=== PATIENT | male | born 1975 | race Caucasian/White ===

== ENCOUNTER 2018-07-14 18:18 | Inpatient (IN) ==
[2018-07-14] MEDS ORDERED: MAGNESIUM SULFATE IV ONE (19:00)
[2018-07-14] MEDS ORDERED: EPINEPHRINE SYRINGE IV ONE (19:00)
[2018-07-14] MEDS: NS 1,000 ML IV SCH ×2 (19:04→21:04)
[2018-07-14] MEDS: ZOFRAN IV ONE ×2 (19:08→21:06)
[2018-07-14] MEDS: ATIVAN IV ONE ×2 (19:10→21:08)
[2018-07-14 20:02] LABS: INR 1.12; PROTIME 15.3 Seconds (11.0-16.0)
[2018-07-14 20:03] LABS: PTT 35.1 Seconds (22.3-41.8)
[2018-07-14 20:06] LABS: BASO# 0.01 X1000 (0.0-0.2); BASO% 0.1 % (0.0-0.8); HEMATOCRIT 34.3 % (42.0-52.0); HEMOGLOBIN 11.7 g/dL (14.0-18.0); IMM GRAN# 0.06 X1000 (0.0-0.04); IMM GRAN% 0.6 % (0.0-0.5); LYMPH# 0.39 X1000 (1.2-3.4); MCH 32.1 PG (27-31); MCHC 34.1 g/dL (33-37); MCV 94.2 FL (81-99); MONO# 0.92 X1000 (0.11-0.59); MONO% 9.4 % (1.7-9.3); MPV 11.7 FL (7.4-10.4); NEUT# 8.45 X1000 (1.4-6.5); NEUT% 85.9 % (42.2-75.2); RBC 3.64 XMIL (4.7-6.1); RDW 15.1 % (11.5-14.5); WBC 9.83 X1000 (4.8-10.8)
[2018-07-14 20:09] LABS: PLT 31 X1000 (130-400)
[2018-07-14 20:26] LABS: ESTIMATED GFR > 60
[2018-07-14 20:27] LABS: AGAP 28; ALB/GLOB RATIO 1.2; ALBUMIN 4.1 g/dL (3.5-5.0); ALKALINE PHOSPHATASE 324 U/L (32-122); BUN 16 mg/dL (8-22); CALCIUM 8.2 mg/dL (8.8-10.2); CHLORIDE 82 mmol/L (98-107); COSMO 274; CREATININE 0.8 mg/dL (0.7-1.2); GLUCOSE 182 mg/dL (70-104); GOT 261 U/L (10-34); GPT 57 U/L (10-44); POTASSIUM 2.8 mmol/L (3.5-5.1); SODIUM 134 mmol/L (136-145); TCO2 24 mmol/L (25-35); TOTAL BILIRUBIN 5.05 mg/dL (0.20-1.00); TOTAL PROTEIN 7.6 g/dL (6.3-8.3)
--- NOTE | 2018-07-14 20:52 | Diag Imaging Result Doc PS360 ---
EXAM: CHEST-PORTABLE - 07/14/2018 HISTORY: encephalopathy TECHNIQUE: Portable chest COMPARISON: 02/22/2014 FINDINGS: Heart size appears normal. The lungs appear clear. There is no pleural effusion or pneumothorax identified. IMPRESSION: No evidence of acute disease. Electronically signed by West Campos 07/14/2018 8:50 PM
[2018-07-14] MEDS ORDERED: ZOFRAN ONE (20:58)
[2018-07-14] MEDS ORDERED: VERSED ONE (21:19)
[2018-07-14] MEDS ORDERED: NORCURON ONE (21:19)
[2018-07-14] MEDS ORDERED: AMIDATE ONE (21:20)
[2018-07-14] MEDS ORDERED: QUELICIN ONE (21:20)
--- NOTE | 2018-07-14 21:58 | Diag Imaging Result Doc PS360 ---
EXAM: CHEST-PORTABLE - 07/14/2018 HISTORY: Tube Placement TECHNIQUE: Portable chest COMPARISON: Portable exam from earlier the same evening (07/14/2018) FINDINGS: There has been interval insertion of an endotracheal tube, with its tip approximately 5 cm above the sasha. There has been development of mild perihilar atelectasis. There is no pleural effusion or pneumothorax identified. IMPRESSION: Tip of endotracheal tube approximately 5 cm above the sasha. Development of mild perihilar atelectasis. Electronically signed by West Campos 07/14/2018 9:56 PM
[2018-07-14] MEDS ORDERED: DIPRIVAN 1% 1,000 MG/100 ML BOTTLE IV SCH (22:00)
[2018-07-14] MEDS: POTASSIUM CHLORIDE 20 MEQ/SWI 20 MEQ/100 ML IVPB IV SCH ×2 (22:00→23:42)
[2018-07-14 22:31] LABS: ALLEN TEST YES; BE -6.1 mmoll (-3.0-3.0); BLOOD TYPE ARTERIAL; METHB 1.4 % (0.0-1.5); PCO2(98.6) 35 mmHg (35-45); PO2(98.6) 71 mmHg (60-100); SAMPLE BLOOD; SAO2 94.4 % (95.0-100.0); THB 12.5 g/dL (11.5-17.4); pH(98.6) 7.34 (7.35-7.45)
[2018-07-14 22:34] LABS: MODALITY AMBU BAG
[2018-07-14 22:41] LABS: URINE SOURCE CLEAN CATCH
[2018-07-14 22:51] LABS: BILIRUBIN URINE NEGATIVE (NEGATIVE); BLOOD URINE LARGE (NEGATIVE); COLOR YELLOW; GLUCOSE URINE TRACE mg/dL (NEGATIVE); KETONE URINE 40 mg/dL (NEGATIVE); LEUKOCYTES URINE TRACE (NEGATIVE); NITRITE URINE NEGATIVE (NEGATIVE); PROTEIN URINE 200 mg/dL (NEGATIVE); SP GRAVITY URINE 1.011; TURBIDITY URINE HAZY (CLEAR); UROBILINOGEN URINE 2 mg/dL (NORMAL)
[2018-07-14 22:56] LABS: UR EPITHELIAL CELLS <10 /HPF (<10); URINE BACTERIA NEGATIVE /HPF; URINE RBC TNTC /HPF (<10); URINE WBC <10 /HPF (<10)
[2018-07-14 23:07] LABS: URINE CASTS GRANULAR PRESENT; URINE CRYSTALS NONE SEEN; URINE SMALL ROUND CELLS NONE SEEN; URINE YEAST NONE SEEN
[2018-07-14] MEDS ORDERED: M.V.I.-12 10 ML, FOLIC ACID 1 MG, MAGNESIUM SULFATE 1 GM, THIAMINE 100 MG in NS 1,000 ML IV ONE (23:11)
[2018-07-14] MEDS ORDERED: ZOFRAN IV PRN (23:11)
[2018-07-14] MEDS ORDERED: ATIVAN IV ONE (23:26)
[2018-07-15] MEDS ORDERED: LEVOPHED 8 MG in D5 1/2 NS 250 ML IV SCH (00:45)
[2018-07-15 00:59] LABS: ALLEN TEST YES; BE 6.6 mmoll (-3.0-3.0); BLOOD TYPE ARTERIAL; METHB 1.1 % (0.0-1.5); O2(CT) 15.4 mL/dL (15.0-23.0); O2HB 95.7 % (95.0-99.0); PCO2(98.6) 40 mmHg (35-45); PO2(98.6) 84 mmHg (60-100); SAMPLE BLOOD; SAO2 98.8 % (95.0-100.0); SRATE 14 BPM; THB 11.4 g/dL (11.5-17.4); TVOL 500 mL; pH(98.6) 7.49 (7.35-7.45)
[2018-07-15 01:02] LABS: MODALITY VENTILATOR
[2018-07-15 01:24] LABS: HEMATOCRIT 31.9 % (42.0-52.0); HEMOGLOBIN 10.9 g/dL (14.0-18.0); MCHC 34.2 g/dL (33-37); MCV 96.7 FL (81-99); MPV 11.3 FL (7.4-10.4); RBC 3.3 XMIL (4.7-6.1); RDW 15.5 % (11.5-14.5); WBC 12.95 X1000 (4.8-10.8)
[2018-07-15] MEDS ORDERED: PROTONIX 80 MG in NS 80 ML IV ONE (01:31)
[2018-07-15] MEDS: DIPRIVAN 1% 1,000 MG/100 ML BOTTLE IV SCH ×7 (01:35→22:40)
[2018-07-15] MEDS: PROTONIX 80 MG in NS 80 ML IV SCH ×3 (02:30→21:22)
[2018-07-15] MEDS: NS 1,000 ML IV SCH ×2 (03:50)
--- NOTE | 2018-07-15 05:00 | HISTORY AND PHYSICAL ---
PRIMARY CARE PHYSICIAN: Dr. Bernard Devi. CHIEF COMPLAINT: Confusion, tremulous, nausea, vomiting, hematemesis x1 day. HISTORY OF PRESENTING ILLNESS: A 43-year-old male with a history of chronic alcoholism and anxiety was brought to the emergency department after patient was found on the floor confused, defecated and having bloody vomitus. He was evaluated in the emergency department. He was tremulous and confused. During his evaluation, he started desatting and becoming unresponsive. Subsequently, ACLS protocol was started and he was emergently intubated. The patient will require admission to ICU for further management. Most of the history and remainder of the history is obtained from his family member. PAST MEDICAL HISTORY: Includes anxiety disorder. PAST SURGICAL HISTORY: Cholecystectomy, appendectomy, left elbow surgery. ALLERGIES: No known drug allergies. CURRENT MEDICATIONS: As listed in the medication reconciliation sheet. SOCIAL HISTORY: Twenty pack years history of smoking, history of alcohol use daily, mostly vodka. No illicit drug use. FAMILY HISTORY: No history of coronary artery disease. REVIEW OF SYSTEMS: Limited due to patient being intubated. PHYSICAL EXAMINATION: GENERAL: The patient is currently intubated. VITAL SIGNS: Pulse 113, blood pressure 148/96. HEENT: Atraumatic, normocephalic. There is poor dentition. NECK: No masses. CHEST: Rhonchi. CARDIOVASCULAR: Regular rate and rhythm. ABDOMEN: Soft, positive bowel sounds. EXTREMITIES: No edema. NEUROLOGIC: He is sedated. GENITOURINARY: No bladder distention. SKIN: Warm. LABORATORIES AND STUDIES: WBCs 9.83, hemoglobin 11.7, hematocrit 34.3, platelets 31,000. Sodium 134, potassium 2.8, chloride 82, CO2 is 24, BUN is 16, creatinine 0.8, glucose is 182, AST is 261, ALT 57, alkaline phosphatase 324. ASSESSMENT: A 43-year-old male with a history of chronic alcoholism and anxiety disorder was brought to the emergency department due to patient being found on the floor in bloody vomitus and mental status changes. He was brought to the emergency department. He was tremulous. It was suspected he was in DTs. During his examination, he started desatting and was becoming somewhat obtunded. He was emergently intubated and he will require ICU admission for further management. 1. Acute respiratory failure. 2. Delirium tremens. 3. Hematemesis. 4. Chronic alcoholism. 5. Abnormal LFTs. 6. Hypokalemia. 7. Thrombocytopenia. PLAN: 1. The patient will be admitted to ICU. 2. We will continue with ventilator support. 3. We will start patient on a banana bag and a propofol drip. 4. We will consult Pulmonary for ventilator management. 5. We will consult Gastroenterology for hematemesis and abnormal LFTs. 6. We will replace his electrolytes. 7. We will continue to monitor his platelets. 8. We will put patient on DVT prophylaxis with SCD. 9. The patient's condition is critical. 10. We will continue to follow and reassess and make further recommendation based on patient's clinical course. cc: Andrés Dejesus MD MTDD
--- NOTE | 2018-07-15 06:29 | Diag Imaging Result Doc PS360 ---
CHEST-PORTABLE - 07/15/2018 INDICATION: Ventilator Patient COMPARISON: 07/14/2018 FINDINGS: Stable endotracheal tube at T3-T4. There are worsening central infiltrates bilaterally particularly at the right hilum. Heart size and pulmonary vascularity are top normal. No pneumothorax or large pleural effusion. IMPRESSION: Worsening central infiltrates compatible with pneumonia or aspiration. Electronically signed by Afshin Manriquez 07/15/2018 6:27 AM
[2018-07-15 06:42] LABS: HEMATOCRIT 24.8 % (42.0-52.0); HEMOGLOBIN 7.9 g/dL (14.0-18.0); LYMPH% 3.7 % (20.5-51.1); MCH 31.6 PG (27-31); MCHC 31.9 g/dL (33-37); MCV 99.2 FL (81-99); MONO% 7.3 % (1.7-9.3); MPV 12.2 FL (7.4-10.4); NEUT% 88.7 % (42.2-75.2); RDW 15.6 % (11.5-14.5); WBC 10.94 X1000 (4.8-10.8)
[2018-07-15 06:43] LABS: IMM GRAN# 0.03 X1000 (0.0-0.04); IMM GRAN% 0.3 % (0.0-0.5); LYMPH# 0.41 X1000 (1.2-3.4); PLT 22 X1000 (130-400)
[2018-07-15 06:47] LABS: MONO 6 % (1-9); SEGS 94 % (42-75)
[2018-07-15 07:01] LABS: INR 1.65; PROTIME 20.8 Seconds (11.0-16.0)
[2018-07-15 07:21] LABS: AGAP 12; ALB/GLOB RATIO 1.1; ALBUMIN 2.4 g/dL (3.5-5.0); ALKALINE PHOSPHATASE 189 U/L (32-122); AMYLASE 27 U/L (20-200); BUN 14 mg/dL (8-22); CHLORIDE 109 mmol/L (98-107); COSMO 281; CREATININE 0.6 mg/dL (0.7-1.2); ESTIMATED GFR > 60; GLUCOSE 85 mg/dL (70-104); GOT 151 U/L (10-34); GPT 37 U/L (10-44); LIPASE 35 U/L (13-60); MAGNESIUM 1.1 mg/dL (1.5-2.7); PHOSPHORUS 2.1 mg/dL (2.7-4.5); SODIUM 141 mmol/L (136-145); TCO2 20 mmol/L (25-35); TOTAL BILIRUBIN 3.07 mg/dL (0.20-1.00); TOTAL PROTEIN 4.6 g/dL (6.3-8.3)
[2018-07-15 07:36] LABS: CALCIUM 5.1 mg/dL (8.8-10.2); POTASSIUM 2.5 mmol/L (3.5-5.1)
[2018-07-15] MEDS ORDERED: POTASSIUM CHLORIDE 40 MEQ/SWI 40 MEQ/100 ML IVPB IV ONE (07:40)
[2018-07-15] MEDS ORDERED: MAGNESIUM SULFATE 4 GM/S.W.I. 4 GM/100 ML IVPB IV ONE (07:40)
[2018-07-15] MEDS ORDERED: CALCIUM GLUCONATE IV PUSH ONE (07:41)
[2018-07-15] MEDS ORDERED: VANCOMYCIN IV PER PHARMACY MISC SCH (07:45)
[2018-07-15] MEDS ORDERED: ATIVAN IV PRN (08:21)
[2018-07-15] MEDS ORDERED: POTASSIUM PHOSPHATE 30 MMOL in NS 250 ML IV ONE (08:30)
[2018-07-15] MEDS ORDERED: NS 1,000 ML IV SCH (08:30)
[2018-07-15 08:38] LABS: ACETONE SERUM NEGATIVE (NEGATIVE)
[2018-07-15] MEDS: ZOSYN 3.375 GM in NS 50 ML IV SCH ×3 (08:45→19:52)
[2018-07-15 08:48] LABS: ACETAMINOPHEN < 1.2 ug/mL (10-30); IRON SATURATION 19 %; TIBC 199 ug/dL; TOTAL IRON 38 ug/dL (53-167); UNBOUND IRON 161 ug/dL (112-346)
[2018-07-15] MEDS ORDERED: VANCOMYCIN 2,000 MG in NS 500 ML IV ONE (09:00)
[2018-07-15 09:07] LABS: FERRITIN 1090 ng/mL (30-400)
[2018-07-15 09:20] LABS: CK INDEX 2.1 (0.0-2.5); CK-MB 5.63 ng/mL (0.0-5.0)
--- NOTE | 2018-07-15 09:34 | PROGRESS NOTE ---
DATE: 07/15/2018 SUBJECTIVE: This patient is on mechanical ventilation and sedated. No family members at the bedside. Apparently he was found on the floor confused and having hematemesis. It looks like he became unresponsive. He was intubated. Admitted to the ICU. He has been getting banana bag fluids, and he is not on pressors. At some point, the blood pressure was in the 80s, but now is in the 100s to 110s. He has multiple electrolytes abnormalities. Also, he is anemic, thrombocytopenic, and he has some coagulopathy as well. He has been ordered PRBCs, platelets and FFPs. Pending lactate level results from today. OBJECTIVE: Vital Signs: Temperature 97.4 degrees, pulse 108, respiratory rate 20, blood pressure 118/82, oxygen saturation 100% on mechanical ventilation. HEENT: Head: Normocephalic. No trauma. Poor dentition. He has some icteric sclera. Neck: Supple. No JVD. Central trachea. Chest: Coarse breath sounds bilaterally with some crepitus at the bases, and mid lung bilaterally as well. Abdomen: Distended, but is soft. Positive bowel sounds. Extremities: No edema. No clubbing. No cyanosis. Neurological examination: The patient is on mechanical ventilation and sedated. LABORATORY: WBC. 10.9, hemoglobin 7.9, hematocrit 24.8, platelet count is 22. PT 20.8 and INR 1.6. Sodium 141, potassium 2.5, chloride 109, bicarbonate 20. BUN 14, creatinine 0.6. Glucose 85, calcium 5.1, magnesium 1.1. Total bilirubin 3, AST 151, ALT 37, alkaline phosphatase 189, albumin 2.4. ASSESSMENT AND PLAN: 1. Septic shock. This patient meets criteria for septic shock due to hypotension, tachypnea, tachycardia, elevated lactate level and pneumonia. He is responding to fluid resuscitation. We have placed this patient on broad-spectrum antibiotics. He has been placed on mechanical ventilation because apparently he started having oxygen desaturation/hypoxemic respiratory failure. 2. Hypoxemic respiratory failure, continue with mechanical ventilation. Pulmonary Department will be evaluating this patient. We will follow their recommendations. 3. Bilateral pneumonia, probably multifocal and likely due to aspiration. He has been placed on broad-spectrum antibiotics. We will continue with the same management. Pulmonary Department has been requested for evaluation. 4. Likely delirium tremens. He has been placed on mechanical ventilation and propofol. I will use pentobarbital if he has some kind of seizure disorder. He has been placed on a banana bag and intravenous fluids. Apparently this patient is allergic to Ativan but I am not quite sure about it. He is only 43 years old and likely he will benefit from getting some help in a detoxification center. 5. Hematemesis. He is getting Protonix drip. He will get blood transfusions and fresh frozen plasma. Gastroenterology Department has been consulted. 6. Thrombocytopenia likely due to liver dysfunction. He has been thrombocytopenic before in 2016, 7. Alcoholic hepatitis with abnormal liver function tests, aware. Gastroenterology on board. 8. Chronic alcoholism, aware. I will advise this patient to stop drinking completely, and I will do daily cessation education. 9. Anemia. Hemoglobin dropped to 7.9. He will receive packed red blood cells. This is likely due to blood-loss anemia. 10. Coagulopathy. PT/INR is slightly elevated, but he will receive fresh frozen plasma to see if that can help with the bleeding. Gastroenterology Department has been consulted. We will monitor. 11. Hypokalemia. We will replace the potassium. 12. Hypocalcemia. We will replace the calcium. 13. Low magnesium and phosphorus. Will replace. This patient is remarkably sick. He is only 43 years old and he has a history of alcohol abuse. I do not have any family members at the bedside. We will continue treating this patient in the ICU. We will continue with fluids, blood products, multivitamins, Protonix drip, antibiotics for his pneumonia and ventilatory support. Gastroenterology Department and Pulmonary Department will evaluate this patient. cc: David Tesfaye MD
[2018-07-15 10:23] LABS: ALLEN TEST YES; BE 4.9 mmoll (-3.0-3.0); BLOOD TYPE ARTERIAL; HCO3-(ACT) 28.8 mmoll (20.0-26.0); METHB 1.1 % (0.0-1.5); O2(CT) 13.6 mL/dL (15.0-23.0); O2HB 96.7 % (95.0-99.0); PCO2(98.6) 33 mmHg (35-45); PO2(98.6) 88 mmHg (60-100); SAMPLE BLOOD; SAO2 99.2 % (95.0-100.0); SRATE 14 BPM; THB 9.9 g/dL (11.5-17.4); TVOL 500 mL; pH(98.6) 7.53 (7.35-7.45)
[2018-07-15 10:24] LABS: MODALITY VENTILATOR
[2018-07-15] MEDS: CLINIMIX E 4.25%-5% SOLUTION 1,000 ML IV SCH ×2 (11:15→19:53)
[2018-07-15] MEDS: PHENOBARBITAL IV PRN (11:43)
--- NOTE | 2018-07-15 11:49 | PULMONOLOGY CONSULTATION ---
DATE: 07/15/2018 REASON FOR CONSULTATION: Respiratory failure. HISTORY OF PRESENT ILLNESS: Mr. Oleg Masters is a 43-year-old white male with history of alcoholism with ongoing alcohol abuse who lost his job 07/04/2018, according to his . He began drinking more at that time. The patient's went out of town, and then when she was on her way home, he would not answer her texts. She reported he had been having difficulty with nausea and vomiting and inability to take p.o. When she arrived at the house, there was blood in the house. He also started having dark tarry stools. The patient was brought to the emergency room. In the emergency room, he had an episode of torsades which corrected with defibrillation. He has had worsening chest x-ray changes and was intubated in the emergency room. PAST MEDICAL HISTORY/PROBLEM LIST: 1. Alcohol abuse as per above. 2. History of alcoholic hepatitis. 3. Hypertension. 4. Anxiety disorder. 5. Status post elbow surgery. 6. Status post appendectomy. 7. Status post cholecystectomy. SOCIAL HISTORY: Ongoing tobacco and alcohol use. Previous drug screen was positive for amphetamines. FAMILY HISTORY: Noncontributory to current presentation. REVIEW OF SYSTEMS: Constitutional: Reveals a disheveled white matter who appears older than his stated age. HEENT: He has some dried blood in his oropharynx. He has brown bloody secretions in his endotracheal tube. OBJECTIVE: Vital signs: Maximum temperature in the last 24 hours 100.4 degrees, blood pressure 112/76 without vasopressors, heart rate 105, respiratory rate 18, oxygen saturation 99% on 50% FiO2. HEENT: Pupils are equal. The sclerae are mildly icteric. Oropharynx has dried blood. Chest: Reveals coarse rhonchi. Cardiac: Regular rate, normal S1, normal S2. Abdomen: Soft with mild distension and no bowel sounds. Extremities: Slightly cool to the touch. LABORATORIES: Chest x-ray reveals increasing bilateral infiltrates. Sodium 141, potassium 2.7, chloride 109, bicarbonate 20, BUN 14, creatinine 0.6, magnesium 1.1, glucose 2.1. Bilirubin 3.07. AST 151, ALT 37, alkaline phosphatase 189. Total protein 4.6, albumin 2.4. Arterial blood gas: pH 7.53, pCO2 of 33, pO2 of 88 on assist control. Respiratory rate 14, 50% FiO2. IMPRESSION: A 43-year-old with alcohol abuse, gastrointestinal bleeding with hematemesis and melena, aspiration pneumonia, alcoholic hepatitis, acute hypoxemic respiratory failure with aspiration pneumonia, protein calorie malnutrition, hypomagnesemia, hypophosphatemia, and severe thrombocytopenia. RECOMMENDATIONS: 1. Continue full ventilatory support with current sedation. Will adjust ventilatory rate. 2. Replace electrolytes as you were doing. 3. Collect sputum for C and S given aspiration pneumonia. 4. Add a calorie source given his protein calorie malnutrition with evidence of ketonuria. 5. Alcohol cessation and tobacco cessation will be discussed if he survives this hospitalization. cc: Oleg Solano MD
[2018-07-15 15:24] LABS: HEMOGLOBIN 10.3 g/dL (14.0-18.0)
[2018-07-15 15:55] LABS: CK INDEX 1.7 (0.0-2.5); CK-MB 4.11 ng/mL (0.0-5.0)
--- NOTE | 2018-07-15 16:06 | Diag Imaging Result Doc PS360 ---
EXAM: US ABDOMEN-COMPLETE 07/15/2018 HISTORY: Abd distention,Elevated LFTs TECHNIQUE: Abdominal ultrasound COMMENT: The liver is hyperechoic and nodular in contour. The pancreatic head is normal in appearance the remainder is obscured. There is no evidence of biliary dilatation the common bile duct measuring less than 6 mm. Detail in most of the liver is very poor. There are no definite masses demonstrated. The spleen is enlarged measuring almost 16.7 cm in greatest dimension. The kidneys are without evidence of hydronephrosis or mass. There is a small amount of free fluid in the right lower quadrant. There is a 12 mm subcutaneous cyst in the left lateral abdomen. There is antegrade flow in the portal vein. The visualized portions of the aorta and inferior vena cava are within normal limits. IMPRESSION: Cirrhosis and splenomegaly. Electronically signed by Ken Bowers 07/15/2018 4:04 PM
[2018-07-15] MEDS ORDERED: SANDOSTATIN IV ONE (18:11)
[2018-07-15 18:37] LABS: HEMOGLOBIN 10.8 g/dL (14.0-18.0)
[2018-07-15] MEDS: SANDOSTATIN 500 MICROGM in D5W 100 ML IV SCH (19:15)
[2018-07-15] MEDS: VANCOMYCIN 1,800 MG in NS 250 ML IV SCH (21:22)
[2018-07-15 22:19] LABS: HEMATOCRIT 33.7 % (42.0-52.0); HEMOGLOBIN 10.9 g/dL (14.0-18.0)
[2018-07-15 22:59] LABS: CK-MB 2.14 ng/mL (0.0-5.0)
--- NOTE | 2018-07-15 23:01 | CONSULTATION ---
DATE OF CONSULTATION: 07/15/2018 REFERRING PHYSICIAN: David Bland M.D. PRIMARY CARE PROVIDER: Bernard Devi D.O. INDICATION FOR CONSULTATION: 1. Hematemesis. 2. Known alcoholism. 3. Reflux esophagitis on recent EGD. HISTORY OF PRESENT ILLNESS: The patient is a 43-year-old white male with a history of chronic alcoholism, anxiety. He was brought to the emergency room after being found down on the floor in his apartment confused, covered with stool and having bloody emesis. In the emergency room, he became tremulous and confused. He subsequently developed severe hypoxemia and respiratory failure requiring emergent intubation. In the ICU, he has continued to have hematemesis. We are asked to participate in his care. Of note, on his chart is a recent EGD performed by Dr. Devi, which reveals severe esophagitis, erosive gastritis and duodenitis. There is no mention of the presence of esophageal varices. PAST MEDICAL HISTORY: 1. ETOH abuse. 2. Anxiety. 3. Esophagitis. 4. Gastric duodenitis as noted above. PAST SURGICAL HISTORY: 1. Cholecystectomy. 2. Appendectomy. 3. Left elbow surgery. MEDICATION ALLERGIES: None. HOME MEDICATIONS: According to [facility] [employer] include. 1. Lexapro. 2. Losartan. REVIEW OF SYSTEMS: Unobtainable as the patient is intubated and sedated. SOCIAL HISTORY: According to the computer is remarkable for a 20 pack-year smoking history, daily alcohol ingestion of vodka. There is no illicit drug use according to the computer. PHYSICAL EXAM: On exam, the patient is intubated and sedated. His blood pressure is 106/67, pulse 97, respiration 19, temperature is 100.6 degrees with a T-max of 101.1 degrees.HEENT: Remarkable for oral intubation, with copious dried bloody secretions around the nasal and oropharynx. Pulmonary: Breath sounds are coarse. Cardiovascular: Reveals a resting tachycardia with a regular rhythm. Abdomen: Is soft but distended. There are high- pitched tinkling bowel sounds but no rebound or guarding. Extremities: Bilaterally are negative for cyanosis, clubbing, or edema. OBJECTIVE DATA: Reveals a hemoglobin of 7.9 with hematocrit of 24.8 and a white count of 10.94 at 0615 this morning. He had 222,000 platelets. His PT was 20.8 with an INR of 1.65. On blood gas his pH is 7.53, pCO2 33, PO2 88 with a lactate of 1.30. He is on 50% FiO2. Please note upon admission his lactate was 13.10 on 100% FiO2. Serum chemistries are remarkable for sodium of 141, potassium 2.5, chloride 109, CO2 of 20, BUN 14, creatinine 0.6 with a glucose of 85. Calcium is 5.1, phosphorus 2.1, magnesium 1.1, total bilirubin 3.07, AST 151, ALT 37, alkaline phosphatase 189, total protein 4.6 and albumin of 2.4. His iron is 38 with ferritin of 1090. His plasma lactate is 1.3, B12 528, folic acid greater than 40. His creatine kinase is 273 with 5.63 on the CK-MB. IMPRESSION: 1. Hematemesis. 2. Alcohol abuse. 3. Abnormal liver function tests. 4. Thrombocytopenia. 5. Cirrhosis secondary to ETOH. RECOMMENDATION: 1. I agree with the Protonix drip as you are doing. 2. I would begin octreotide drip as it is unclear whether not the patient has portal hypertension. This may help reduce his splanchnic pressure and reduce bleeding from an upper GI source. 3. I agree with Clinimix for nutrition support as it is unlikely that the patient will be able to advance his diet in the next 24 to 48 hours. I do recommend a KUB in the morning to assess for an ileus versus obstruction given his abdominal distention. Once the distension improves, I would begin enteral feedings. 4. I personally reviewed his abdominal ultrasound which is only remarkable for cirrhosis and splenomegaly. There were no definitive masses in the liver but the details are very poor because of gaseous distention. I would continue to monitor. 5. The patient had GERD with severe esophagitis on his recent EGD. I will begin Carafate suspension. Please place a nasogastric tube for medication administration. 6. With regard to an EGD for his hematemesis, I recommend correcting his thrombocytopenia and stabilizing him clinically before endoscopy is considered. 7. We will continue to monitor the patient with you. 8. His MELD score is 16. Under different circumstances, I would refer him for liver transplant. Unfortunately, he is an active drinker and therefore I will continue management at this time. 9. His discriminant function is 44. I will begin Trental 400 mg 3 times a day for alcoholic hepatitis. I am reluctant to use prednisolone as we have no assurance that we will be able to follow up with this patient on a regular basis. 10. Additional recommendations to follow based on his clinical course. cc: David Tesfaye MD MTDD
[2018-07-16] MEDS: CARAFATE LIQUID PO SCH ×5 (00:32→21:01)
[2018-07-16] MEDS: ZOSYN 3.375 GM in NS 50 ML IV SCH ×4 (00:48→19:33)
[2018-07-16 01:24] LABS: HEMATOCRIT 33.1 % (42.0-52.0); HEMOGLOBIN 10.8 g/dL (14.0-18.0)
[2018-07-16] MEDS: DIPRIVAN 1% 1,000 MG/100 ML BOTTLE IV SCH ×3 (01:36→09:35)
[2018-07-16] MEDS: CLINIMIX E 4.25%-5% SOLUTION 1,000 ML IV SCH ×3 (02:53→19:38)
[2018-07-16] MEDS: SANDOSTATIN 500 MICROGM in D5W 100 ML IV SCH ×2 (04:25→14:00)
[2018-07-16 04:46] LABS: ALLEN TEST YES; BE 3.9 mmoll (-3.0-3.0); BLOOD TYPE ARTERIAL; HCO3-(ACT) 27.9 mmoll (20.0-26.0); O2(CT) 18.2 mL/dL (15.0-23.0); O2HB 94.6 % (95.0-99.0); PCO2(98.6) 38 mmHg (35-45); PO2(98.6) 99 mmHg (60-100); SAMPLE BLOOD; SAO2 95.3 % (95.0-100.0); SRATE 14 BPM; THB 13.6 g/dL (11.5-17.4); TVOL 500 mL; pH(98.6) 7.47 (7.35-7.45)
[2018-07-16 04:48] LABS: MODALITY VENTILATOR
[2018-07-16 06:39] LABS: HEPATITIS PROFILE ACUTE SEE COMMENTS
[2018-07-16] MEDS: PROTONIX 80 MG in NS 80 ML IV SCH ×2 (07:02→16:54)
[2018-07-16 07:13] LABS: PHOSPHORUS 2.9 mg/dL (2.7-4.5)
[2018-07-16 07:17] LABS: BASO# 0.03 X1000 (0.0-0.2); BASO% 0.2 % (0.0-0.8); EOS% 0.7 % (0.0-10.0); HEMATOCRIT 32.6 % (42.0-52.0); HEMOGLOBIN 10.5 g/dL (14.0-18.0); IMM GRAN# 0.07 X1000 (0.0-0.04); IMM GRAN% 0.5 % (0.0-0.5); LYMPH# 1.37 X1000 (1.2-3.4); LYMPH% 10.2 % (20.5-51.1); MCH 32.3 PG (27-31); MCHC 32.2 g/dL (33-37); MCV 100.3 FL (81-99); MONO# 0.63 X1000 (0.11-0.59); MONO% 4.7 % (1.7-9.3); MPV 12.4 FL (7.4-10.4); NEUT# 11.18 X1000 (1.4-6.5); NEUT% 83.7 % (42.2-75.2); PLT 42 X1000 (130-400); RBC 3.25 XMIL (4.7-6.1); RDW 17.1 % (11.5-14.5); WBC 13.38 X1000 (4.8-10.8)
--- NOTE | 2018-07-16 08:10 | Diag Imaging Result Doc PS360 ---
EXAM: KUB ABDOMEN INDICATION: abdominal distension on exam TECHNIQUE: One view COMPARISON: None. FINDINGS: There is a NG tube projecting well below the diaphragm and assumed to be in the lumen of the stomach in expected position. There are unremarkable bowel gas and stool patterns. There is no obstructive bowel pattern. There is no evidence of large volume free abdominal gas. IMPRESSION: No evidence of acute pathology by plain radiograph. Electronically signed by Morgan Murcia 07/16/2018 8:07 AM
--- NOTE | 2018-07-16 08:11 | Diag Imaging Result Doc PS360 ---
EXAM: CHEST-PORTABLE INDICATION: dyspnea TECHNIQUE: One view COMPARISON: 07/15/2018 FINDINGS: The ET tube is in stable position. An NG tube projects below the diaphragm and is assumed to be in the lumen of the stomach in expected position. Central infiltrates have improved slightly during the interval. No new consolidation is identified. Cardiac silhouette is stable. IMPRESSION: Interval placement of NG tube and modest improvement of central infiltrates. Electronically signed by Morgan Murcia 07/16/2018 8:09 AM
[2018-07-16] MEDS: TRENTAL PO SCH ×3 (09:11→16:17)
[2018-07-16] MEDS: M.V.I.-12 10 ML, FOLIC ACID 1 MG, MAGNESIUM SULFATE 1 GM, THIAMINE 100 MG in NS 1,000 ML IV SCH (09:12)
--- NOTE | 2018-07-16 09:18 | PROGRESS NOTE ---
DATE: 07/16/2018 SUBJECTIVE: This patient is still on mechanical ventilation and sedated. No family members at the bedside. No acute events overnight. OBJECTIVE: Vital Signs: Temperature 98 degrees, pulse 80, respiratory rate 15, blood pressure 141/68, oxygen saturation 100% on mechanical ventilation. HEENT: Head normocephalic. No trauma. PERRLA. Icteric sclerae. Skin: Jaundice. Neck: Supple. No JVD. Central trachea. Chest: Coarse breath sounds bilaterally with some crepitus at the bases and midlung bilaterally as well. Abdomen: Slightly distended, but soft. Positive bowel sounds. Extremities: No edema. No clubbing. No cyanosis. Neurological examination: This patient is on mechanical ventilation and sedated. LABORATORY: WBC 13.3, hemoglobin 10.5, hematocrit 32.6, platelets 42. Pending CMP. Magnesium 2. ASSESSMENT AND PLAN: 1. Septic shock. It looks like this is getting better. Continue with supportive measures, fluids and antibiotics, mechanical ventilation. 2. Hypoxemic respiratory failure. Pulmonary Department on board. Continue with mechanical ventilation. 3. Bilateral pneumonia probably multifocal and likely due to aspiration. He has been placed on broad-spectrum antibiotics. We will continue with the same management. 4. Likely delirium tremens. He has been placed on mechanical ventilation and propofol. I will use phenobarbital in case of seizures. Continue with banana bag IV fluids. Apparently this patient is allergic to Ativan, but I am not quite sure about it. He is only 43 years and likely he will benefit from getting some help in a detoxification center. 5. Hematemesis. He is getting Protonix drip and also octreotide drip. We will transfuse this patient as needed. Gastroenterology on board. 6. Thrombocytopenia likely due to liver dysfunction, status post platelet transfusion. This is better. 7. Alcoholic hepatitis with abnormal liver function test. Liver cirrhosis. Aware. Gastroenterology on board. Continue with the same management. 8. Chronic alcoholism. I will advise this patient to stop drinking completely. I will do daily cessation education. 9. Anemia, better. Hemoglobin has been stable after getting packed red blood cells. 10. Coagulopathy. He received already fresh frozen plasma. Gastroenterology Department on board. 11. Hypokalemia. Potassium has been replaced, but pending results today. 12. Hypocalcemia. Calcium has been replaced, but pending results today. 13. Hypomagnesemia and hypophosphatemia. They were replaced and normal today. CRITICAL CARE TIME: 35 minutes. cc: David Tesfaye MD
--- NOTE | 2018-07-16 09:33 | Diag Imaging Result Doc PS360 ---
EXAM: CHEST-PORTABLE INDICATION: NG tube placement TECHNIQUE: One view COMPARISON: None. FINDINGS: There is a newly placed NG tube. The tip projects well below the diaphragm and is assumed to be in the lumen of the stomach in the expected position. There is nonspecific mild gaseous distention of bowel. This is mainly involving the transverse colon. There is nothing that is specific for obstruction. No large volume free abdominal gas is appreciated. IMPRESSION: NG tube placement as described in the expected position. Nonspecific abdomen, otherwise. Electronically signed by Morgan Murcia 07/16/2018 9:31 AM
[2018-07-16] MEDS: VANCOMYCIN 1,800 MG in NS 250 ML IV SCH ×2 (10:18→21:06)
[2018-07-16] MEDS ORDERED: ATIVAN IV ONE (10:40)
[2018-07-16] MEDS ORDERED: PHENOBARBITAL IV ONE (10:46)
[2018-07-16] MEDS: PHENOBARBITAL IV PRN ×3 (10:51→21:59)
[2018-07-16 11:06] LABS: AGAP 15; ALB/GLOB RATIO 0.9; ALBUMIN 2.9 g/dL (3.5-5.0); ALKALINE PHOSPHATASE 222 U/L (32-122); BUN 20 mg/dL (8-22); CALCIUM 7.1 mg/dL (8.8-10.2); CHLORIDE 98 mmol/L (98-107); COSMO 276; CREATININE 0.9 mg/dL (0.7-1.2); ESTIMATED GFR > 60; GLUCOSE 122 mg/dL (70-104); GOT 213 U/L (10-34); GPT 56 U/L (10-44); POTASSIUM 3.3 mmol/L (3.5-5.1); SODIUM 136 mmol/L (136-145); TCO2 23 mmol/L (25-35); TOTAL BILIRUBIN 3.36 mg/dL (0.20-1.00); TOTAL PROTEIN 6.1 g/dL (6.3-8.3)
[2018-07-16 12:18] LABS: ALLEN TEST YES; BE 3.5 mmoll (-3.0-3.0); BLOOD TYPE ARTERIAL; HCO3-(ACT) 27.5 mmoll (20.0-26.0); METHB 0.6 % (0.0-1.5); O2(CT) 13.4 mL/dL (15.0-23.0); PCO2(98.6) 40 mmHg (35-45); PO2(98.6) 55 mmHg (60-100); SAMPLE BLOOD; SAO2 91.2 % (95.0-100.0); THB 10.7 g/dL (11.5-17.4); pH(98.6) 7.45 (7.35-7.45)
[2018-07-16 12:20] LABS: MODALITY VENTILATOR
[2018-07-16 12:21] LABS: O2HB 88.7 % (95.0-99.0)
--- NOTE | 2018-07-16 13:47 | PULMONOLOGY PROGRESS NOTE ---
DATE: 07/16/2018 SUBJECTIVE: The patient is arousable on propofol. He remains on mechanical ventilation. OBJECTIVE: Vital Signs: Maximum temperature in the last 24 hours was 100.6 degrees. Blood pressure 113/76, heart rate 84, respiratory rate 20, and oxygen saturation 95%. HEENT: Pupils are small but reactive. Oropharynx has some residual dried blood in place. Neck: Supple. Respiratory: The chest reveals coarse rhonchi bilaterally. Cardiac: Regular rate, normal S1, and normal S2. Abdomen: The abdomen is soft. The extremities are without edema. LABORATORIES: Chest x-ray reveals a slight decrease in bilateral infiltrates. Sputum culture is pending. Chem-12 has been ordered. Phosphorus is 2.9 and magnesium 2. White blood count is 13.4, hemoglobin 10.5, and platelet count 42,000. Arterial blood gas reveals a pH of 7.47, pCO2 of 38, and pO2 of 99. IMPRESSION: A 43-year-old alcoholic with aspiration pneumonia, gastrointestinal bleed with hematemesis and melena, alcoholic hepatitis, acute hypoxemic respiratory failure , thrombocytopenia, and protein calorie malnutrition. Radiographically he has improved. PLAN: 1. The patient failed initial propofol sedation vacation. He will be given some phenobarbital and Ativan and a sedation vacation will be attempted again this morning. 2. Check chemistries. 3. Continue current antibiotics. 4. Alcohol cessation and tobacco cessation will be discussed if he survives this hospital stay. Time spent critical care: 30+ minutes cc: Oleg Solano MD MTDD
[2018-07-16 15:39] LABS: INR 1.27; PROTIME 16.9 Seconds (11.0-16.0)
--- NOTE | 2018-07-16 16:24 | PROGRESS NOTE ---
DATE: 07/16/2018 SUBJECTIVE: This morning, the patient was successfully extubated. He denies abdominal pain, nausea, vomiting. He had a nasogastric tube placed yesterday that has only removed 250 mL of fluid. It is reddish brown in color but there is no active bleeding. According to his parents who are at bedside, he has had multiple episodes of flatus. He remains agitated but is alert and oriented x3. EXAM: His blood pressure is 116/67, pulse of 113, respirations 22, temperature of 98.6 degrees. He is on 98% mask with saturations of 91 to 93 percent.HEENT: Remarkable for a nasogastric tube and dry oropharyngeal mucosal secretions. He has mild icterus. Pulmonary: Breath sounds are coarse with occasional rhonchi bilaterally. Cardiovascular: Reveals a resting tachycardia with a regular rhythm. Abdomen: Soft and nontender with no rebound or guarding. Extremities: Negative for cyanosis, clubbing, or edema. OBJECTIVE DATA: Reveals a hemoglobin of 10.5 with hematocrit of 32.6 and a white count of 13.38. He has 42,000 platelets posttransfusion. His blood gas this morning had a pH of 7.45, pCO2 of 40 and a PO2 of 55 on 40% ventilation. He is awaiting repeat blood gas on face mask. His sodium is 136, potassium 3.3, chloride 98, CO2 of 23, BUN 20, creatinine 0.9 with a glucose of 122. Calcium 7.1, phosphorus 2.9, magnesium 2.0, total bilirubin 3.36, AST 13, ALT 56, alkaline phosphatase 222, total protein 6.1 and albumin 2.9. CK was 207. IMPRESSION: 1. Hematemesis. 2. Alcoholic hepatitis. 3. Known erosive esophagitis. 4. Abnormal liver function tests. 5. Aspiration pneumonia. RECOMMENDATION: 1. Continue PPI therapy. 2. Continue octreotide. 3. Continue Trental. 4. Continue Carafate. 5. Continue antibiotics for aspiration pneumonia. 6. Continue Clinimix for now. He is awake but somewhat agitated. I am concerned about the risk of aspiration. We can consider either tube feedings with Jevity 1.5 or clear liquid diet in the morning depending on how he progresses overnight. 7. I will check hepatitis profile given his history. 8. Additional recommendations to follow based on his clinical course. 9. He will need an EGD at some point to assess for the source of bleeding and to screen for esophageal varices. At this time, I will monitor his clinical course as he continues to have signs and symptoms of withdrawal. cc: Bernard Devi DO
[2018-07-17] MEDS: SANDOSTATIN 500 MICROGM in D5W 100 ML IV SCH ×3 (00:56→20:58)
[2018-07-17] MEDS: ZOSYN 3.375 GM in NS 50 ML IV SCH ×4 (01:34→19:34)
[2018-07-17] MEDS: CARAFATE LIQUID PO SCH ×4 (01:34→19:33)
[2018-07-17] MEDS: PROTONIX 80 MG in NS 80 ML IV SCH ×2 (03:05→13:30)
[2018-07-17] MEDS: CLINIMIX E 4.25%-5% SOLUTION 1,000 ML IV SCH ×4 (03:55→22:21)
[2018-07-17 04:43] LABS: ALLEN TEST YES; BE 5.4 mmoll (-3.0-3.0); BLOOD TYPE ARTERIAL; HCO3-(ACT) 28.9 mmoll (20.0-26.0); METHB 0.9 % (0.0-1.5); O2(CT) 16.5 mL/dL (15.0-23.0); PCO2(98.6) 38 mmHg (35-45); PO2(98.6) 57 mmHg (60-100); SAMPLE BLOOD; SAO2 92.8 % (95.0-100.0); THB 13.1 g/dL (11.5-17.4); pH(98.6) 7.49 (7.35-7.45)
[2018-07-17 04:46] LABS: MODALITY COOL AEROSOL; O2HB 89.8 % (95.0-99.0)
--- NOTE | 2018-07-17 08:17 | Diag Imaging Result Doc PS360 ---
EXAM: CHEST-PORTABLE INDICATION: dyspnea TECHNIQUE: One view COMPARISON: 07/16/2018 FINDINGS: There has been interval extubation. The NG tube is in stable position. There has been interval worsening of infiltrates at the mid and lower lung zones suggesting worsening edema. No other new consolidations are appreciated. Cardiac silhouette is stable. IMPRESSION: Interval worsening of pulmonary edema. Electronically signed by Morgan Murcia 07/17/2018 8:14 AM
[2018-07-17] MEDS: M.V.I.-12 10 ML, FOLIC ACID 1 MG, MAGNESIUM SULFATE 1 GM, THIAMINE 100 MG in NS 1,000 ML IV SCH (08:33)
[2018-07-17] MEDS: VANCOMYCIN 1,800 MG in NS 250 ML IV SCH ×2 (08:33→21:53)
[2018-07-17] MEDS: TRENTAL PO SCH ×3 (08:33→17:45)
[2018-07-17] MEDS ORDERED: LASIX IV ONE ×2 (08:41→11:30)
[2018-07-17 09:21] LABS: BASO# 0.03 X1000 (0.0-0.2); BASO% 0.3 % (0.0-0.8); EOS# 0.06 X1000 (0.0-0.7); EOS% 0.6 % (0.0-10.0); IMM GRAN# 0.04 X1000 (0.0-0.04); IMM GRAN% 0.4 % (0.0-0.5); LYMPH# 0.69 X1000 (1.2-3.4); LYMPH% 7.1 % (20.5-51.1); MCH 33.1 PG (27-31); MCHC 32.4 g/dL (33-37); MCV 102.2 FL (81-99); MONO# 0.94 X1000 (0.11-0.59); MONO% 9.7 % (1.7-9.3); MPV 12.2 FL (7.4-10.4); NEUT# 7.94 X1000 (1.4-6.5); NEUT% 81.9 % (42.2-75.2); PLT 48 X1000 (130-400); RBC 3.62 XMIL (4.7-6.1); RDW 16.7 % (11.5-14.5)
[2018-07-17 09:25] LABS: INR 1.24; PROTIME 16.6 Seconds (11.0-16.0)
[2018-07-17 09:57] LABS: AGAP 12; ALBUMIN 3.4 g/dL (3.5-5.0); ALKALINE PHOSPHATASE 196 U/L (32-122); BUN 15 mg/dL (8-22); CALCIUM 8.1 mg/dL (8.8-10.2); CHLORIDE 97 mmol/L (98-107); COSMO 275; CREATININE 0.7 mg/dL (0.7-1.2); ESTIMATED GFR > 60; GLUCOSE 138 mg/dL (70-104); GOT 162 U/L (10-34); GPT 57 U/L (10-44); SODIUM 136 mmol/L (136-145); TCO2 27 mmol/L (25-35); TOTAL BILIRUBIN 4.54 mg/dL (0.20-1.00); TOTAL PROTEIN 6.9 g/dL (6.3-8.3)
--- NOTE | 2018-07-17 11:38 | PROGRESS NOTE ---
DATE: 07/17/2018 SUBJECTIVE: This patient has been extubated yesterday. Today, he is completely alert and oriented x3. He is not having signs of withdrawal. He is still a little bit tachycardic and tachypneic. X-ray showed worsening pulmonary edema. I will decrease the rate of the IV fluids and I will give him a 1 time dose of Lasix to see how he does. Pending lab work today. OBJECTIVE: Vital Signs: Temperature 98.1 degrees, pulse 97, respiratory rate 39, blood pressure 149/90, oxygen saturation 94% on a mask. HEENT: Head normocephalic. No trauma. PERRLA. Icteric sclerae. Some dried blood around the mouth. Skin: Jaundiced. Neck: Supple. No JVD. Central trachea. Chest: Coarse breath sounds bilaterally. Crepitus at the bases and decreased breath sounds at the bases as well. Abdomen: Slightly distended but soft. Positive bowel sounds. Extremities: No edema. No clubbing. No cyanosis. Neurological: The patient is alert and oriented x3. He is following commands. He is answering my questions. No focal deficits. No signs of withdrawal. LABORATORY: Pending CBC and CMP at this moment. ASSESSMENT AND PLAN: 1. Septic shock. This is better. Continue with the same management, antibiotics, mechanical ventilation. 2. Hypoxemic respiratory failure, status post extubation. Continue with oxygen supplementation and breathing treatment. Pulmonary department on board. 3. Bilateral pneumonia, multifocal, likely due to aspiration. Continue with broad-spectrum antibiotics. Continue with the same management. 4. Possible delirium tremens. No signs of withdrawal at this moment. 5. Hematemesis. Continue with Protonix, octreotide drip. Transfuse this patient as needed. Pending CBC today. Gastroenterology on board. 6. Thrombocytopenia, likely due to liver dysfunction, status post platelet transfusion. Pending platelet count today. 7. Alcoholic hepatitis with abnormal liver function test, liver cirrhosis. Aware. 8. Chronic alcoholism. This patient has been advised against alcohol abuse. I will continue with daily cessation education. 9. Tobacco abuse. This patient has been highly advised against tobacco use. I will continue with daily cessation education as well. 10. Coagulopathy. Yesterday was a little bit better compared with the day before. No lab work today. 11. Electrolyte imbalance including hypokalemia, hypocalcemia, hypomagnesemia, and hypophosphatemia. Pending results. We have been replacing electrolytes. CRITICAL CARE TIME: 30 minutes. cc: David Tesfaye MD
--- NOTE | 2018-07-17 12:23 | PULMONOLOGY PROGRESS NOTE ---
DATE: 07/17/2018 SUBJECTIVE: The patient is awake, alert and conversant. He reports he feels better. OBJECTIVE: The patient has been afebrile for the last 24 hours. Blood pressure is 159/90, heart rate 95, respiratory rate 35, oxygen saturation 98% on 50% face mask. HEENT: Pupils are equal and reactive. Oropharynx is clear. Neck is supple. Chest reveals scattered rhonchi bilaterally. Cardiac: Regular rate. Normal S1, normal S2. Abdomen is mildly distended with increased tympany. There are good bowel sounds in all 4 quadrants. No tenderness appreciated. Extremities reveal 1+ peripheral edema. DIAGNOSTIC DATA: Chest x-ray reveals significant increase in pulmonary edema. White blood count is 9.7, hemoglobin 12.0, platelet count 48,000. Chemistry shows sodium 136, potassium 3.0, chloride 97, bicarbonate 27, BUN is 15, creatinine 0.7, bilirubin 4.54, AST is 162, ALT is 57, alkaline phosphatase 196. Arterial blood gas shows pH of 7.49, pCO2 of 38, pO2 of 57. IMPRESSION: A 43 year old with alcoholism, aspiration pneumonia, gastrointestinal bleed with hematemesis and melena, alcoholic hepatitis, acute hypoxemic respiratory failure, thrombocytopenia, and protein calorie malnutrition. He has had significant increase in pulmonary edema today. He is doing well off of mechanical ventilation. RECOMMENDATIONS: 1. Diuretics today to mobilize fluid given increased pulmonary edema. 2. Continue phenobarbital for alcohol withdrawal. 3. Continue current antibiotics. 4. Alcohol cessation and tobacco cessation recommended. cc: Oleg Solano MD
--- NOTE | 2018-07-17 19:11 | PROGRESS NOTE ---
DATE: 07/17/2018 SUBJECTIVE: The patient feels better today. He is awake, alert, and able to carry on a conversation. He denies abdominal pain, nausea, and vomiting. He states that he is hungry and ready to eat. There has been no recurrent hematemesis since admission. PHYSICAL EXAMINATION: Vital Signs: His blood pressure is 124/81, pulse 94, respiration 33, temperature is 100.3 degrees, which is his T-max for today. HEENT: Remarkable in that he has dried oropharyngeal secretions. There is no evidence of jaundice. Pulmonary: His breath sounds are coarse, with scattered rhonchi bilaterally. His overall exam is improved, compared to his exam yesterday. Cardiovascular: Reveals a regular rate and rhythm, with no gallops or rubs. Abdomen: Soft, with mild distention and increased tympany. There is no rebound or guarding. Extremities: Bilaterally are remarkable for peripheral edema. OBJECTIVE DATA: Reveals a hemoglobin of 12.0, with hematocrit of 37.0, and a white count of 9.70. He has 48,000 platelets. His PT is 16.6, with an INR of 1.24. His blood gas this morning revealed a pH of 7.49, pCO2 of 38, PO2 of 57, on 98% FiO2. His sodium is 137, potassium 3.0, chloride 97, CO2 27, BUN 15, creatinine 0.7, with a glucose of 138. Calcium is 8.1, magnesium 1.5, total bilirubin 4.54, AST 162, ALT 57, alkaline phosphatase 196, total protein 6.9, and albumin 3.4. RECOMMENDATION: 1. Regarding hematemesis, I will place the patient on the schedule for an EGD tomorrow afternoon, as long as his oxygenation continues to improve. 2. For the alcoholic hepatitis, I would continue Trental for 30 days, and then stop. 3. For the esophagitis, as well as the gastroduodenitis, I would continue Protonix and Carafate. Please hold the Carafate prior to his endoscopy tomorrow. 4. I agree with antibiotics for the aspiration pneumonia. 5. Continue Clinimix for nutrition. I will also begin a clear liquid diet and advance as tolerated. 6. His hepatitis profile is negative. I recommend hepatitis A and B vaccinations as an outpatient, given his cirrhosis. 7. His liver function tests continue to improve, albeit slowly. Therefore, I recommend clinical monitoring. 8. Additional recommendations to follow based on his clinical course. cc: MD Bernard Gross DO Omar J. Sosa-Chirinos, MD
[2018-07-17 21:11] LABS: AGAP 15; ALBUMIN 2.9 g/dL (3.5-5.0); BUN 17 mg/dL (8-22); CALCIUM 8.5 mg/dL (8.8-10.2); CHLORIDE 92 mmol/L (98-107); COSMO 273; CREATININE 0.6 mg/dL (0.7-1.2); ESTIMATED GFR > 60; GLUCOSE 127 mg/dL (70-104); MAGNESIUM 1.2 mg/dL (1.5-2.7); POTASSIUM 3.1 mmol/L (3.5-5.1); SODIUM 135 mmol/L (136-145); TCO2 28 mmol/L (25-35)
[2018-07-17] MEDS ORDERED: MAGNESIUM SULFATE 1 GM/D5W 1 GM/100 ML IVPB IV ONE (23:21)
[2018-07-18] MEDS: POTASSIUM CHLORIDE 20 MEQ/SWI 20 MEQ/100 ML IVPB IV SCH ×2 (00:03→02:34)
[2018-07-18] MEDS: PROTONIX 80 MG in NS 80 ML IV SCH (00:03)
[2018-07-18] MEDS ORDERED: NS 250 ML ONE (00:29)
[2018-07-18] MEDS: CARAFATE LIQUID PO SCH ×3 (02:34→13:09)
[2018-07-18] MEDS: ZOSYN 3.375 GM in NS 50 ML IV SCH ×4 (02:34→20:02)
[2018-07-18] MEDS: PROTONIX IV SCH ×2 (02:34→12:46)
[2018-07-18] MEDS: CLINIMIX E 4.25%-5% SOLUTION 1,000 ML IV SCH ×2 (02:47→10:26)
[2018-07-18 04:30] LABS: ALLEN TEST YES; BE 10.4 mmoll (-3.0-3.0); BLOOD TYPE ARTERIAL; O2(CT) 15.2 mL/dL (15.0-23.0); O2HB 94.2 % (95.0-99.0); PCO2(98.6) 42 mmHg (35-45); PO2(98.6) 72 mmHg (60-100); SAMPLE BLOOD; SAO2 97.6 % (95.0-100.0); THB 11.4 g/dL (11.5-17.4); pH(98.6) 7.52 (7.35-7.45)
[2018-07-18 04:46] LABS: MODALITY COOL AEROSOL
[2018-07-18 05:10] LABS: BASO# 0.02 X1000 (0.0-0.2); BASO% 0.2 % (0.0-0.8); EOS# 0.13 X1000 (0.0-0.7); EOS% 1.6 % (0.0-10.0); HEMATOCRIT 33.5 % (42.0-52.0); IMM GRAN# 0.04 X1000 (0.0-0.04); IMM GRAN% 0.5 % (0.0-0.5); LYMPH# 0.75 X1000 (1.2-3.4); MCH 32.6 PG (27-31); MCHC 32.8 g/dL (33-37); MCV 99.4 FL (81-99); MONO# 1.23 X1000 (0.11-0.59); MONO% 14.7 % (1.7-9.3); MPV 11.1 FL (7.4-10.4); NEUT# 6.19 X1000 (1.4-6.5); PLT 69 X1000 (130-400); RBC 3.37 XMIL (4.7-6.1); RDW 15.9 % (11.5-14.5); WBC 8.36 X1000 (4.8-10.8)
[2018-07-18 05:25] LABS: AGAP 12; ALB/GLOB RATIO 0.9; ALBUMIN 2.9 g/dL (3.5-5.0); ALKALINE PHOSPHATASE 174 U/L (32-122); BUN 15 mg/dL (8-22); CALCIUM 7.5 mg/dL (8.8-10.2); CHLORIDE 95 mmol/L (98-107); COSMO 271; CREATININE 0.6 mg/dL (0.7-1.2); ESTIMATED GFR > 60; GLUCOSE 127 mg/dL (70-104); GOT 127 U/L (10-34); GPT 47 U/L (10-44); POTASSIUM 3.6 mmol/L (3.5-5.1); SODIUM 134 mmol/L (136-145); TCO2 27 mmol/L (25-35); TOTAL BILIRUBIN 3.64 mg/dL (0.20-1.00); TOTAL PROTEIN 6.2 g/dL (6.3-8.3)
[2018-07-18] MEDS: SANDOSTATIN 500 MICROGM in D5W 100 ML IV SCH ×2 (06:28→17:33)
--- NOTE | 2018-07-18 07:13 | Diag Imaging Result Doc PS360 ---
EXAM: CHEST-PORTABLE 07/18/2018 HISTORY: dyspnea TECHNIQUE: AP portable at 0525 COMMENT: There is interstitial pulmonary edema. This has improved since 07/17/2018. IMPRESSION: Improving pulmonary edema. Electronically signed by Ken Bowers 07/18/2018 7:11 AM
[2018-07-18] MEDS: TRENTAL PO SCH ×3 (08:05→16:29)
[2018-07-18] MEDS: VANCOMYCIN 1,800 MG in NS 250 ML IV SCH ×2 (08:08→21:06)
[2018-07-18] MEDS: M.V.I.-12 10 ML, FOLIC ACID 1 MG, MAGNESIUM SULFATE 1 GM, THIAMINE 100 MG in NS 1,000 ML IV SCH (08:08)
[2018-07-18] MEDS ORDERED: LASIX IV STA (08:14)
--- NOTE | 2018-07-18 08:18 | PROGRESS NOTE ---
DATE: 07/18/2018 SUBJECTIVE: This patient had been extubated 2 days ago. He is alert and oriented x3. He is not having symptoms or signs of withdrawal. He is scheduled to get a thoracentesis done today. He is still a little bit tachypneic but the heart rate has been much better. Pulmonary edema seems to be better also. OBJECTIVE: Vital Signs: Temperature 98.1 degrees, pulse 88, respiratory rate 42, blood pressure 142/95, oxygen saturation 99 on 2 L of nasal cannula. HEENT: Head normocephalic. No trauma. PERRLA. Icteric sclerae. Some dry blood around the mouth. Skin jaundiced. Neck: Supple. No JVD. Central trachea. Chest: Coarse breath sounds bilaterally. Crepitus at the bases and decreased breath sounds at the bases as well. Abdomen: Slightly distended but soft. Positive bowel sounds. Extremities: No edema. No clubbing. No cyanosis. Neurological Examination: The patient is alert and oriented x3. No focal deficits. He is following commands. He is answering my questions. No signs of withdrawal. Laboratory: WBC 8.3, hemoglobin 11, hematocrit 33.5, platelets 69,000. Sodium 134, potassium 3.6, chloride 95, bicarbonate 27, BUN 15, creatinine 0.6, glucose 127, calcium 7.5, magnesium 1.5. Total bilirubin 3.6, AST 137, ALT 47, alkaline phosphatase 174, albumin 2.9. ASSESSMENT AND PLAN: 1. Septic shock, resolved. Continue with the same management, antibiotics. 2. Hypoxemic respiratory failure, status post extubation. Continue with oxygen supplementation and breathing treatments. Pulmonary department on board. Antibiotics. 3. Bilateral pneumonia, multifocal, likely due to aspiration. Continue broad-spectrum antibiotics. Continue with the same management. WBC normalized. 4. Possible delirium tremens. No signs of withdrawal at this moment. 5. Hematemesis. Continue with Protonix. He is scheduled to get an upper endoscopy today. We will monitor. 6. Thrombocytopenia, likely secondary to liver dysfunction, status post platelet transfusion. This is better. 7. Alcoholic hepatitis with abnormal liver function tests, possible liver cirrhosis. Aware. 8. Chronic alcoholism and tobacco abuse. This patient has been highly advised against alcohol and tobacco use. I will continue with daily cessation education. 9. Coagulopathy. This is getting a little bit better. We just need to monitor. 10. Metabolic encephalopathy upon admission, resolved. 11. Electrolyte imbalance including hypokalemia, hypocalcemia, hypomagnesemia, and hypophosphatemia. This is getting much better. We have been replacing electrolytes. CRITICAL CARE TIME: 30 minutes. cc: aDvid Tesfaye MD
[2018-07-18 09:02] LABS: HEPATITIS PROFILE ACUTE SEE COMMENTS
--- NOTE | 2018-07-18 09:34 | PULMONOLOGY PROGRESS NOTE ---
DATE: 07/18/2018 SUBJECTIVE: The patient is awake, alert, and conversant. He reports he has a cough with some sputum production but is otherwise feeling well. He is tolerating p.o. intake. OBJECTIVE: Vital signs: Maximum temperature in the last 24 hours 100.3 degrees, current temperature 98.1. BP 140/97, heart rate 93, respiratory rate 27, oxygen saturation 94% on 2 liters per nasal cannula. HEENT: Pupils are equal and reactive. Oropharynx is clear. Neck: Supple. Chest: Reveals bruising over the sternum with bilateral crackles. Cardiac: S1, S2. Abdomen: Soft and without hepatosplenomegaly. Extremities: Without edema. LABORATORIES: Sodium 134, potassium 3.6, chloride 95, bicarbonate 27, BUN 15, creatinine 0.6, magnesium 1.5. Bilirubin 3.6, AST 127, ALT 47, total protein 6.2, albumin 2.9. Arterial blood gas: pH 7.52, pCO2 of 42, pO2 of 72 on 40% cool aerosol. Chest x-ray reveals decreasing pulmonary edema/infiltrates. IMPRESSION: A 43-year-old with alcoholism, aspiration pneumonia, gastrointestinal bleeding with hematemesis and melena, alcoholic hepatitis, acute hypoxemic respiratory failure, thrombocytopenia, and protein calorie malnutrition. The patient is doing well following extubation. He currently shows no active signs of alcohol withdrawal. His alcoholic hepatitis is resolving. His thrombocytopenia is improving. RECOMMENDATION: 1. Additional diuretics today. 2. Continue phenobarbital for alcohol withdrawal. 3. Diet as tolerated. 4. Continue antibiotics. Anticipate discontinuing antibiotics in the next 48-72 hours. 5. Alcohol cessation and tobacco cessation were recommended. cc: Oleg Solano MD
--- NOTE | 2018-07-18 10:45 | EKG Report ---
Test Performed on : 07/14/2018 7:29:34 PM Test Reason : Possible Seizure Blood Pressure : / mmHG Vent. Rate : 109 BPM Atrial Rate : 109 BPM P-R Int : 104 ms QRS Dur : 098 ms QT Int : 490 ms P-R-T Axes : 000 032 052 degrees QTc Int : 659 ms Sinus tachycardia. with short CO T wave abnormality, consider anterolateral ischemia Prolonged QT Abnormal ECG No previous ECGs available Confirmed by Jillian RUANO, Balwinder Durham ([id number]) on 07/18/2018 3:19:29 PM
[2018-07-18] MEDS ORDERED: XYLOCAINE-MPF 2% ONE (14:39)
[2018-07-18] MEDS ORDERED: DIPRIVAN 1% ONE (14:40)
[2018-07-18] MEDS ORDERED: VERSED ONE (15:24)
[2018-07-18] MEDS ORDERED: QUELICIN (DOSE) ONE (15:25)
[2018-07-18] MEDS ORDERED: DECADRON ONE (16:10)
[2018-07-18] MEDS ORDERED: S2 RACEPINEPHRINE 2.25% INH ONE (18:00)
[2018-07-18] MEDS ORDERED: S2 RACEPINEPHRINE 2.25% ONE (18:13)
[2018-07-18] MEDS ORDERED: LASIX IV ONE (21:00)
[2018-07-18] MEDS: PHENOBARBITAL IV PRN (23:45)
[2018-07-19] MEDS: CLINIMIX E 4.25%-5% SOLUTION 1,000 ML IV SCH (00:29)
[2018-07-19] MEDS: PROTONIX IV SCH ×2 (02:24→12:53)
[2018-07-19] MEDS: ZOSYN 3.375 GM in NS 50 ML IV SCH ×4 (02:24→19:40)
[2018-07-19] MEDS: SANDOSTATIN 500 MICROGM in D5W 100 ML IV SCH ×4 (05:19→23:13)
[2018-07-19 05:54] LABS: INR 1.19; PROTIME 16.1 Seconds (11.0-16.0); PTT 31.2 Seconds (22.3-41.8)
[2018-07-19 05:55] LABS: HEMATOCRIT 33.7 % (42.0-52.0); MCH 32.8 PG (27-31); MCHC 32.6 g/dL (33-37); MCV 100.6 FL (81-99); MPV 12.3 FL (7.4-10.4); RBC 3.35 XMIL (4.7-6.1); RDW 16.2 % (11.5-14.5); WBC 8.84 X1000 (4.8-10.8)
[2018-07-19 06:12] LABS: MAGNESIUM 1.4 mg/dL (1.5-2.7); PHOSPHORUS 3.4 mg/dL (2.7-4.5)
[2018-07-19 06:27] LABS: AGAP 15; ALB/GLOB RATIO 0.9; ALBUMIN 3.1 g/dL (3.5-5.0); ALKALINE PHOSPHATASE 188 U/L (32-122); BUN 17 mg/dL (8-22); CALCIUM 7.4 mg/dL (8.8-10.2); CHLORIDE 92 mmol/L (98-107); COSMO 272; CREATININE 0.7 mg/dL (0.7-1.2); ESTIMATED GFR > 60; GLUCOSE 147 mg/dL (70-104); GOT 140 U/L (10-34); GPT 56 U/L (10-44); POTASSIUM 3.6 mmol/L (3.5-5.1); SODIUM 134 mmol/L (136-145); TCO2 27 mmol/L (25-35); TOTAL BILIRUBIN 3.65 mg/dL (0.20-1.00); TOTAL PROTEIN 6.5 g/dL (6.3-8.3)
[2018-07-19] MEDS: M.V.I.-12 10 ML, FOLIC ACID 1 MG, MAGNESIUM SULFATE 1 GM, THIAMINE 100 MG in NS 1,000 ML IV SCH (09:13)
[2018-07-19] MEDS: TRENTAL PO SCH ×3 (09:13→16:14)
[2018-07-19] MEDS: VANCOMYCIN 1,800 MG in NS 250 ML IV SCH (09:13)
[2018-07-19] MEDS ORDERED: MAGNESIUM SULFATE 2 GM/S.W.I. 2 GM/50 ML IVPB IV ONE (09:59)
--- NOTE | 2018-07-19 10:17 | PROGRESS NOTE ---
DATE: 07/19/2018 SUBJECTIVE: Mr. Masters is a 43-year-old patient of Dr. Bernard Eldridge who has a history of chronic alcoholism, anxiety, brought to the emergency department on 07/14/2018, found on the floor confused, defecated, had bloody vomitus. In the emergency room he was tremulous and confused. He started O2. Saturations were low. He became unresponsive. Went through ACLS protocol and intubated. Admitted to the ICU. OBJECTIVE: General: So this morning, he is awake, but he is in restraints. He still had some confusion and agitation last night. Vital signs: Temperature 99.3 degrees, pulse 88, respirations 30, blood pressure 110/8. Eyes: Pupils are equal and round. Lungs: Clear in all lung bui. Cardiovascular: Regular rhythm and rate without murmur or S3. Abdomen: Soft. Skin: Warm and dry. URINE OUTPUT: 7500 mL. LABORATORY: White count 8840, hematocrit 33, hemoglobin 11, platelet count 80,000. Sodium 134, potassium 3.6, chloride 92, BUN 17, creatinine 0.7. Total bilirubin 3.65, AST 140, ALT 56, alkaline phos 188, AST and ALT slightly up from yesterday. ASSESSMENT AND PLAN: 1. Septic shock, resolved. Continue present antibiotics. 2. Hypoxemic respiratory failure, status post extubation. Continue with oxygen supplement, breathing treatments, present antibiotics. 3. Bilateral pneumonia, multifocal, likely due to aspiration. Continue his broad-spectrum antibiotics. He is improving. 4. Delirium tremens suspected. He has confusion. Requires restraints. 5. Hematemesis. Continue Protonix. His blood counts appear to be stable. Hematocrit 33, hemoglobin 11. 6. Chronic alcoholism. 7. Elevated liver function tests. Continue to monitor. 8. Hypokalemia. 9. Thrombocytopenia. Platelet count seems to be improving. Chemistries seem to be stable. Creatinine is 0.7. 10. Review of his orders: He is on Clinimix 75 mL an hour, Protonix 40 mg IV q.12, Trental 400 mg t.i.d., phenobarbital 80 mg IV q.6 hours p.r.n. He is on vancomycin and Zosyn. 11. Review of lab: Magnesium is still low. We will give him some more magnesium today. cc: Balwinder Walsh MD
[2018-07-19] MEDS: PHENOBARBITAL IV PRN ×2 (10:35→16:14)
[2018-07-19] MEDS ORDERED: LASIX IV ONE (10:58)
--- NOTE | 2018-07-19 11:58 | PULMONOLOGY PROGRESS NOTE ---
DATE: 07/19/2018 SUBJECTIVE: The patient is currently in restraints. He was confused earlier this morning. He currently is awake and alert. He is oriented to name, place, and the new year of 2018, but he did think it was the and not the . He reports he is in restraints because he got confused and pulled out some IVs. He is hungry. OBJECTIVE: The patient has been afebrile for the last 24 hours. Blood pressure 119/93, heart rate 25, respiratory rate 18, oxygen saturation 98% on nasal cannula. HEENT: Pupils are equal and reactive. Oropharynx is clear. Neck is supple. Chest reveals crackles in the lung bases without significant wheeze or rhonchi. Cardiac: S1, S2. Abdomen is soft with positive bowel sounds. Extremities are without edema. DIAGNOSTIC DATA: Sodium is 134, potassium 3.6, chloride 92, bicarbonate 27, BUN is 17, creatinine 0.7, magnesium 1.4, bilirubin 3.65, AST is 140, ALT is 56, alkaline phosphatase 188. White blood count is 8.84, hemoglobin 11.0, platelet count increasing to 80. No chest x-ray today. IMPRESSION: A 43 year old with alcoholism, aspiration pneumonia, cirrhosis with portal hypertension, gastrointestinal bleeding with hematemesis and melena, alcoholic hepatitis, acute hypoxic respiratory failure, thrombocytopenia, and protein calorie malnutrition. Attempts to perform an EGD were unsuccessful yesterday because the patient needed to be intubated for the procedure, and intubation could not be performed due to vocal cord edema, by report. Currently his voice is clear. He has a clear cough without rhonchi present. RECOMMENDATIONS: 1. Advance diet to full liquid today. 2. Continue Zosyn for aspiration pneumonia. We will discontinue vancomycin given negative cultures. 3. Wean oxygen as tolerated. 4. Mobilize patient. We will attempt to get him out of the bed into a chair. cc: Oleg Solano MD
--- NOTE | 2018-07-19 18:06 | PROGRESS NOTE ---
DATE: 07/19/2018 SUBJECTIVE: The patient is awake and alert, but remains confused. He actually pulled out all of his IVs this morning thinking that he was required to help someone who was in distress. Although he is able to carry on a conversation, it is clear when you ask very direct questions that he is considerably confused. He reports epigastric and left upper quadrant pain, but states that it is better. PHYSICAL EXAMINATION: Vital Signs: His blood pressure is 110/71, pulse of 84, respirations 22, temperature of 99.3 degrees. Pulmonary: He has a dry cough that is recurrent while I was in the ICU and during my exam. Lungs: His lungs are remarkable for coarse breath sounds. Cardiovascular: Reveals regular rate and rhythm with no gallops or rubs. Abdomen: Soft but distended. There is epigastric and left upper quadrant tenderness but no rebound or guarding. Extremities: Bilaterally are negative for cyanosis, clubbing, or edema. OBJECTIVE DATA: Reveals a hemoglobin of 11.0 with hematocrit of 33.7, and a white count of 8.84. He has 80,000 platelets. His PT is 16.1 with an INR of 1.19. His PTT is 31.2. Sodium is 134, potassium 3.6, chloride 92, CO2 27, BUN 17, creatinine 0.7 with a glucose of 146. Calcium is 7.4, phosphorus 3.4, magnesium 1.4, total bilirubin 3.65, AST 140, ALT 56, alkaline phosphatase 188, total protein 6.5 and albumin 3.2. RECOMMENDATION: Given that we were unable to perform the EGD yesterday, due to INCOMPLETE REPORT--DICTATION STOPS HERE. cc: Dorene Figueroa MD
--- NOTE | 2018-07-19 18:38 | OPERATIVE NOTE ---
PROCEDURE DATE: 07/18/2018 PROCEDURE NAME: EGD, canceled due to inability to intubate the airway. CONSENT: Informed consent was obtained from the patient prior to the procedure. The risks, benefits, and alternatives were discussed with the patient and his . MEDICATION: General anesthesia was attempted. However, they were unsuccessful in intubating the airway due to epiglottic and vocal cord edema. It was felt that it was safer to abort the procedure given his airway edema. The patient had initially been given conscious sedation in order to facilitate oral intubation. However, given the edema in the hypopharynx, the patient was awakened and the procedure was canceled. PERFORMING PHYSICIAN: Dorene Figueroa MD. ASSISTANTS: 1. [facility] 2. Mercedes Kulkarni R.N. 3. Henry Rosario CRNA. 4. Fady Sinha MD (anesthesia). 5. Pratima Sauceda MD (anesthesia). PROCEDURE PERFORMED: None. COMPLICATIONS: There were no endoscopic complications. Vocal cord edema prevented intubation of the airway. There was also epiglottic edema. IMPRESSION: Inability to intubate airway with termination of the procedure. RECOMMENDATION: 1. Will transfer the patient back to the ICU. 2. IV steroids are being administered by Anesthesia in order to reduce airway edema. 3. I spoke with Dr. Oleg Solano who will assess the patient on 07/19/2018. 4. Continue current medications. 5. Will schedule repeat EGD pending his clinical course and resolution of the airway edema. cc: David Tesfaye MD
[2018-07-19] MEDS ORDERED: TEARISOL OPH SOLUTION BOTH EYES PRN (21:43)
[2018-07-19] MEDS ORDERED: MELATONIN PO ONE (21:45)
[2018-07-20] MEDS: ZOSYN 3.375 GM in NS 50 ML IV SCH ×4 (01:45→20:03)
[2018-07-20] MEDS: PROTONIX IV SCH ×2 (01:45→13:12)
[2018-07-20] MEDS: SANDOSTATIN 500 MICROGM in D5W 100 ML IV SCH (05:16)
[2018-07-20 05:31] LABS: BASO# 0.02 X1000 (0.0-0.2); BASO% 0.3 % (0.0-0.8); EOS# 0.11 X1000 (0.0-0.7); EOS% 1.5 % (0.0-10.0); HEMATOCRIT 37.2 % (42.0-52.0); IMM GRAN# 0.03 X1000 (0.0-0.04); IMM GRAN% 0.4 % (0.0-0.5); LYMPH# 0.59 X1000 (1.2-3.4); MCH 32.3 PG (27-31); MCHC 32.3 g/dL (33-37); MCV 100.3 FL (81-99); MONO# 1.02 X1000 (0.11-0.59); MONO% 13.8 % (1.7-9.3); MPV 10.8 FL (7.4-10.4); PLT 109 X1000 (130-400); RBC 3.71 XMIL (4.7-6.1); RDW 16.3 % (11.5-14.5); WBC 7.37 X1000 (4.8-10.8)
[2018-07-20 05:39] LABS: AGAP 12; ALB/GLOB RATIO 1.1; ALBUMIN 3.3 g/dL (3.5-5.0); ALKALINE PHOSPHATASE 184 U/L (32-122); BUN 11 mg/dL (8-22); CALCIUM 7.2 mg/dL (8.8-10.2); CHLORIDE 95 mmol/L (98-107); COSMO 277; CREATININE 0.6 mg/dL (0.7-1.2); ESTIMATED GFR > 60; GLUCOSE 92 mg/dL (70-104); GOT 166 U/L (10-34); GPT 63 U/L (10-44); MAGNESIUM 1.6 mg/dL (1.5-2.7); POTASSIUM 3.3 mmol/L (3.5-5.1); SODIUM 139 mmol/L (136-145); TCO2 32 mmol/L (25-35); TOTAL BILIRUBIN 3.69 mg/dL (0.20-1.00); TOTAL PROTEIN 6.3 g/dL (6.3-8.3)
[2018-07-20 06:22] LABS: FREE T4 1.03 ng/dL (0.93-1.70); TSH 1.35 uIUmL (0.27-4.20)
[2018-07-20] MEDS: PHENOBARBITAL IV PRN ×2 (06:25→12:15)
--- NOTE | 2018-07-20 07:24 | Diag Imaging Result Doc PS360 ---
EXAM: CHEST-PORTABLE 07/20/2018 HISTORY: abnormal exam TECHNIQUE: AP portable at 0603 COMMENT: There is some hazy pulmonary edema particularly over the right base. The inspiration is less optimal than on 07/18/2018, considering this there has probably been no significant change. IMPRESSION: Pulmonary edema. Electronically signed by Ken Bowers 07/20/2018 7:21 AM
[2018-07-20] MEDS: TRENTAL PO SCH ×3 (09:07→18:10)
[2018-07-20] MEDS: M.V.I.-12 10 ML, FOLIC ACID 1 MG, MAGNESIUM SULFATE 1 GM, THIAMINE 100 MG in NS 1,000 ML IV SCH (09:08)
--- NOTE | 2018-07-20 09:37 | PROGRESS NOTE ---
DATE: 07/20/2018 SUBJECTIVE: Mr. Masters is doing much better. He is out of restraints. He is oriented x3, eating well. I think he can probably move to the floor. OBJECTIVE: Vital Signs: Temperature 97.7 degrees, pulse 84, respirations 15, blood pressure 108/77. Eyes: Pupils are equal and round. Lungs: Clear in all lung bui. Cardiovascular exam: Regular rhythm and rate without murmur or S3. Abdomen: Soft. Skin: Warm and dry. : Urine output is about 4000 mL. RADIOGRAPHS: Chest x-ray from this morning: There is some hazy pulmonary edema, in particular the right base. Inspiration is less optimal, but breathing comfortably. Note the patient did an EGD which was canceled due to inability to intubate airway. ASSESSMENT AND PLAN: 1. Septic shock which is resolved. 2. Hypoxemic respiratory failure status post extubation and doing well from that standpoint. 3. Bilateral pneumonia multifocal likely aspiration. This appears to be improving clinically and radiographically. He does have some pulmonary edema left. 4. Delirium tremens, suspected. This appears to have improved. 5. Hematemesis. He is on Protonix, getting a Sandostatin drip. I think we can stop the Sandostatin. 6. Chronic alcoholism. 7. Elevated liver function tests. 8. Hypokalemia. Continue to watch and supplement. 9. Thrombocytopenia. We will supplement some more potassium at this time. He has elevation of his transaminase. AST is 166, ALT is 63. It looks like he has received a total of 3 packed red blood cells and he has received 2 units of pheresis platelets. Blood counts look good. Hematocrit is 37 and hemoglobin 12. cc: Balwinder Walsh MD
--- NOTE | 2018-07-20 10:37 | PULMONOLOGY PROGRESS NOTE ---
DATE: 07/20/2018 SUBJECTIVE: The patient is awake, alert, and conversant. He tolerated breakfast this morning. He has been having liquid bowel movements which are brown for the last several days. He has a dry nonproductive cough. OBJECTIVE: Vital signs: BP 108/77, heart rate 84, respiratory rate 15, oxygen saturation 97% on nasal cannula. HEENT: Pupils are equal and reactive. Oropharynx is clear. Neck: Supple. Chest: Clear to auscultation and percussion. Cardiac: S1, S2. Abdomen: Soft without hepatosplenomegaly. Extremities: Without edema. LABORATORIES: White blood count 7.37, hemoglobin 12.0, platelet count 109,000. Sodium 139, potassium 3.3, chloride 95, bicarbonate 32, BUN 11, creatinine 0.6. Chest x-ray reveals hazy infiltrates at the right base without significant change. IMPRESSION: A 43-year-old with alcohol abuse, aspiration pneumonia, cirrhosis with portal hypertension, gastrointestinal bleeding with alcoholic hepatitis, acute hypoxemic respiratory failure, thrombocytopenia, protein calorie malnutrition. The patient did have an episode of torsades associated with electrolyte abnormalities at the time of presentation. He has significantly improved. His chest x-ray is clearing. His hemoglobin is stable to increased. Platelet count is recovering. Mental status continues to improve. He has had no evidence of bleeding. He has almost completed 5 days of Sandostatin . RECOMMENDATIONS: 1. Continue current diet. 2. Continue antibiotics. 3. Discontinue Grimm. 4. Wean oxygen as tolerated. 5. Physical therapy. 6. Agree with Dr. Walsh. The patient has almost completed 5 days of Sandostatin. I believe this can be discontinued and he can be transferred out of the intensive care unit. cc: Oleg Solano MD
[2018-07-20] MEDS ORDERED: MAGNESIUM SULFATE 2 GM/S.W.I. 2 GM/50 ML IVPB IV ONE (12:01)
--- NOTE | 2018-07-20 14:59 | PROVIDER DOCUMENTATION ---
This chart was entered by Nena Corona Scribe, acting as scribe for Seferino Sauceda MD. HPI-General Adult - General Chief Complaint: GI Bleed Stated Complaint: SEIZURE/DARK STOOLS Time Seen by Provider: 07/14/18 19:54 Source: patient, family Allergies/Adverse Reactions: Patient Allergies Allergy/AdvReac Type Severity Reaction Status Date / Time lorazepam [From Ativan] AdvReac Unknown Verified 07/14/18 19:36 Home Medications: Home Medication List Medication Instructions Recorded Confirmed Last Taken Type Escitalopram Oxalate [Lexapro] 10 mg PO DAILY 03/24/16 03/24/16 Unknown History Losartan Potassium 100 mg PO DAILY 03/24/16 03/24/16 Unknown History - History of Present Illness -Gen Adult Nature of Presenting Problems: pt is a 43 yr old male presenting via EMS with violent vomiting, tremor, photophobia. family reports pt is a alcoholic, drinks large amounts of beer and vodka daily, no alcohol in 1.5 days, family refused to get pt any when he ran out. tonight blood in vomit and black loose stools noted. pt also complains of diffuse abdominal pain, multiple bruises over body. pt lost job 07/04/18 Location of Pain/Injury: reports: head, abdomen Pain Radiation: reports: no radiation Severity: reports: severe Onset/Duration: reports: gradual Timing: reports: still present Modifying Factors: improves with: nothing Associated Symptoms: reports: headaches, loss of appetite, nausea, vomiting, weakness, other (photophobia, tremors, abdominal pain) Similar Symptoms Previously?: Yes Recently seen or treated by another doctor?: No Review of Systems - Adult - REVIEW OF SYSTEMS - ADULT ROS:: ROS per family Constitutional: reports: no symptoms reported Eyes: reports: no symptoms reported Cardiovascular: reports: no symptoms reported Respiratory: reports: shortness of breath Gastrointestinal: reports: abdominal pain, diarrhea, nausea, poor appetite, rectal bleeding, vomiting Genitourinary: reports: no symptoms reported Musculoskeletal: reports: muscle aches, muscle weakness Integumentary: reports: other (bruising) Neurological: reports: tremors Psychiatric: reports: alcohol/drug dependence Endocrine: reports: no symptoms reported Hematologic/Lymphatic: reports: easy bruising Allergic/Immunologic: reports: no symptoms reported All Other Systems: Reviewed and Negative Past History - Adult - PAST MEDICAL HISTORY-ADULT Review of Records: reports: Old Records Reviewed, Nursing Assessment Review, Medications Reviewed, Social history reviewed & non-contributory. Major Childhood Illnesses: reports: denies history Cardiovascular: reports: denies history Respiratory: reports: denies history Gastrointestinal: reports: denies history Obstetrical/Gynecological: reports: denies history Genitourinary: reports: denies history Musculoskeletal: reports: denies history Neurological: reports: denies history Psychiatric: reports: anxiety Endocrine/Immune: reports: denies history Other Conditions: reports: denies history - PRIOR SURGERIES/PROCEDURES Surgical/Procedure History: reports: appendectomy, cholecystectomy - IMMUNIZATION STATUS Childhood Immunizations: See Nurse Assessment Flu Vaccine: See Nurse Assessment - FAMILY HISTORY Family History: reviewed, not pertinent - SOCIAL HISTORY Smoking: cigarettes Substance Use: alcohol Alcohol Use Frequency: every day (beer and vodka, large amounts daily) Living Situation: family Physical Exam-General - PHYSICAL EXAM-ADULT Initial Vital Signs Reviewed: Yes - CONSTITUTIONAL General Appearance: moderate distress, other (tremulous) - EYES Eyes: photophobia - HEAD, EARS, NOSE, MOUTH & THROAT HENMT: normocephalic/atraumatic, other (dried blood in mouth, on lips). negative: moist mucous membranes (dry) - NECK Neck: full range of motion, supple - RESPIRATORY Respiratory: lungs clear, normal breath sounds - CARDIOVASCULAR Cardiovascular: normal peripheral pulses, no edema, no gallop, no JVD, no murmur , tachycardia - GASTROINTESTINAL (ABDOMEN) Abdominal Exam: normal bowel sounds, distended, guarding, tenderness, hepatomegaly (4 finger bredths below margin), other (acities) - GENITOURINARY Female Genitalia/Pelvic Exam: deferred Rectal Exam: deferred - LYMPHATIC Lymphatic: no adenopathy - MUSCULOSKELETAL Back Exam: ecchymosis (multiple bruises) Extremity: other (tremulous) - SKIN Integumentary: normal turgor, ecchymosis (multipe areas of bruising over arms, chest, back), jaundice, purpura - NEUROLOGIC Neurologic: negative: facial droop, focal weakness, motor weakness - PSYCHIATRIC Psych/Mental Status: disheveled Progress - PLAN OF CARE/RESULTS Progress/Plan/Lab Results: Vital Signs - 8 hr 07/14/18 18:32 07/14/18 19:23 12/27/18 19:24 Temperature 97.4 F L Pulse Rate 110 H 113 H 112 H Respiratory Rate 20 27 H 30 H Blood Pressure 160/105 153/102 O2 Sat by Pulse Oximetry 100 97 07/14/18 19:30 07/14/18 19:31 07/14/18 19:40 Temperature Pulse Rate 119 H 113 H Respiratory Rate 29 H 31 H Blood Pressure 148/96 O2 Sat by Pulse Oximetry 98 94 L 95 Laboratory Results - last 24 hr 07/14/18 07/14/18 19:17 19:17 WBC 9.83 RBC 3.64 L Hgb 11.7 L Hct 34.3 L MCV 94.2 MCH 32.1 H MCHC 34.1 RDW Std Deviation 15.1 H Plt Count 31 L* MPV 11.7 H Immature Gran % (Auto) 0.6 H Neut % (Auto) 85.9 H Lymph % (Auto) 4.0 L Starr % (Auto) 9.4 H Eos % (Auto) 0.0 Baso % (Auto) 0.1 Immature Gran # (Auto) 0.06 H Neut # (Auto) 8.45 H Lymph # (Auto) 0.39 L Starr # (Auto) 0.92 H Eos # (Auto) 0.00 Baso # (Auto) 0.01 PT 15.3 INR 1.12 PTT (Actin FS) 35.1 Orders Category Date Time Status CBC WITH ELECTRONIC DIFF [HEME] Stat Lab 07/14/18 19:17 Completed COMPREHENSIVE METABOLIC PANEL [CHEM] Stat Lab 07/14/18 19:17 Received PROTIME WITH INR [COAG] Stat Lab 07/14/18 19:17 Completed PTT [COAG] Stat Lab 07/14/18 19:17 Completed TYPE & SCREEN [BBK] Stat Lab 07/14/18 19:17 Received GI Bleed (possible) Stat Oth 07/14/18 19:36 Ordered EKG [EKG] Stat Ther 07/14/18 19:37 Ordered Result Diagrams: 07/20/18 05:10 07/20/18 05:10 - EKG 1 Time of EKG reading by physician:: 19:29 EKG Read and Signed by:: Seferino Sauceda EKG Interpretation (*Must complete 3 of following elements*): Abnormal (twave abnormality-consider lateral ischemia) Prior EKG Comparison: changes noted (10/17/15) - XRAY 1 XRAY Study: Chest Impression: Normal ( Signed EXAM: CHEST-PORTABLE - 07/14/2018 HISTORY : encephalopathy TECHNIQUE: Portable chest COMPARISON: 02/22/2014 FINDINGS : Heart size appears normal. The lungs appear clear. There is no pleural effusion or pneumothorax identified. IMPRESSION: No evidence of acute disease. Electronically signed by West Campos 07/14/2018 8:50 PM 2049 Interpreting Physician: West Campos MD Dictated Date/Time : 07/14/182048 cc: Seferino Sauceda MD; Bernard Devi DO) Comparison with other Films: no changes (02/22/14) - CONSULTS/PCP/HOSPITALIST Notification #1 *Consult/PCP/Hospitalist*: Dr Dejesus Time Discussed: 20:50 Reason/Comments: plan of care for pt admit Consult Disposition: Admit Departure - Departure Date of Disposition Decision: 07/14/18 Time of Disposition Decision: 22:42 DIAGNOSIS: Acute GI bleeding, Alcohol dependence Disposition: ADMITTED INPATIENT 09 Certified Medical Emergency: Emergent Condition: Serious - Critical Care Note This patient required my direct & personal management of CC.: Yes Total Time (mins): 35 Critical Care Statement: This patient required my direct personal management to treat or rule out processes, the absence of which, could potentiallly result in sudden, clinically significant life or limb threatening deterioration. Attestation - Physician/ HIREN Attestation Patient care was provided by Advanced Practice Provider:: No The physician spent face to face time with patient:: Yes Advanced Practice Provider documentation review:: Supervising physician onsite and consulted in the evaluation and care of this patient. The physician did have a face to face encounter with the patient. This chart was documented by the indicated scribe, (Nena Corona Scribe) and accurately reflects the services I performed and decisions made by me, Seferino Sauceda MD, as attested by the provider's signature.
--- NOTE | 2018-07-21 01:09 | PROGRESS NOTE ---
DATE: 07/20/2018 SUBJECTIVE: The patient states that he is feeling significantly better. He is tolerating a full liquid diet. He denies abdominal pain, nausea, vomiting, hematemesis and melena. He reports that he feels good. From a GI perspective, there has been no recurrent bleeding. PHYSICAL EXAMINATION: Vital Signs: His blood pressure is 107/70, pulse of 81, respirations 20, temperature 98.0 degrees. HEENT: Remarkable for poor dentition, but moist mucous membranes. Pulmonary: Lungs are clear to auscultation anteriorly. Cardiovascular: Reveals regular rate and rhythm with no gallops or rubs. Abdomen: Soft and nontender with no rebound or guarding. OBJECTIVE DATA: Reveals a hemoglobin of 12.0 with hematocrit of 37.2 and a white count of 7.37. He has 109,000 platelets. Sodium is 139, potassium 3.3, chloride 95, CO2 of 32, BUN 11, creatinine 0.6 with a glucose of 92. Calcium is 7.9, magnesium 1.9, total bilirubin 3.69, AST 166, ALT 63, alkaline phosphatase 84, ammonia 51, total protein 6.3, and albumin 3.3. His B12 is 517 with a folate of 25.3. IMPRESSION: 1. Hematemesis. 2. Hepatic encephalopathy. 3. 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 RECOMMENDATION: 1. The patient has had no further bout of hematemesis. He is tolerating a full liquid diet. I recommend that he be advanced to a GI soft diet in the morning. 2. We attempted an EGD to further evaluate his hematemesis. Unfortunately, they were unable to intubate the trachea in order to have airway protection. In light of this, I recommend that the patient have additional time for recovery and undergo an outpatient EGD for further evaluation of the hematemesis and to screen for esophageal varices. 3. I will advance his diet to a GI soft. 4. I agree with discontinuation of the octreotide drip. 5. Continue Protonix 40 mg IV q.12 hours as an inpatient. At the time of discharge, I would transition to oral Prilosec 40 mg daily. 6. Continue Trental 400 mg p.o. t.i.d. for a total of 30 days. This should in on 08/16/2018. 7. Continue antibiotics for treatment of the aspiration pneumonia. 8. Additional recommendations to follow based on his clinical course. 9. From a GI perspective, the patient is stable for transfer from the ICU to the floor as per the primary care service and Pulmonary Critical Care. 10. I will defer to the primary team for correction of his fluid and electrolytes. cc: MD Bernard Gross DO Allen J. Schmidt, MD
[2018-07-21] MEDS: ZOSYN 3.375 GM in NS 50 ML IV SCH ×4 (02:53→20:06)
[2018-07-21] MEDS: PROTONIX IV SCH ×2 (02:54→13:28)
[2018-07-21 05:36] LABS: BASO# 0.02 X1000 (0.0-0.2); BASO% 0.3 % (0.0-0.8); EOS% 1.6 % (0.0-10.0); HEMATOCRIT 34.2 % (42.0-52.0); HEMOGLOBIN 10.9 g/dL (14.0-18.0); IMM GRAN# 0.02 X1000 (0.0-0.04); IMM GRAN% 0.3 % (0.0-0.5); LYMPH# 0.64 X1000 (1.2-3.4); LYMPH% 10.2 % (20.5-51.1); MCH 32.1 PG (27-31); MCHC 31.9 g/dL (33-37); MCV 100.6 FL (81-99); MONO# 0.96 X1000 (0.11-0.59); MONO% 15.3 % (1.7-9.3); NEUT# 4.55 X1000 (1.4-6.5); NEUT% 72.3 % (42.2-75.2); PLT 122 X1000 (130-400); RDW 16.4 % (11.5-14.5); WBC 6.29 X1000 (4.8-10.8)
[2018-07-21 06:05] LABS: AGAP 10; BUN 7 mg/dL (8-22); CALCIUM 7.8 mg/dL (8.8-10.2); CHLORIDE 97 mmol/L (98-107); COSMO 272; CREATININE 0.6 mg/dL (0.7-1.2); ESTIMATED GFR > 60; GLUCOSE 94 mg/dL (70-104); PHOSPHORUS 2.2 mg/dL (2.7-4.5); POTASSIUM 2.6 mmol/L (3.5-5.1); SODIUM 137 mmol/L (136-145); TCO2 30 mmol/L (25-35)
--- NOTE | 2018-07-21 07:32 | Diag Imaging Result Doc PS360 ---
EXAM: CHEST-2 VIEWS HISTORY: abnormal exam TECHNIQUE: Chest, two views COMPARISON: 07/20/2018 FINDINGS: There are small pleural effusions. There is also basilar atelectasis and underlying infiltrates on the left. The heart remains mildly enlarged. Pulmonary edema is less pronounced. IMPRESSION: Worsening basilar atelectasis and infiltrates. Electronically signed by Braden Smith 07/21/2018 7:30 AM
[2018-07-21] MEDS ORDERED: POTASSIUM PHOSPHATE 40 MEQ in NS 250 ML IV ONE (08:50)
[2018-07-21] MEDS: M.V.I.-12 10 ML, FOLIC ACID 1 MG, MAGNESIUM SULFATE 1 GM, THIAMINE 100 MG in NS 1,000 ML IV SCH (09:00)
[2018-07-21] MEDS: TRENTAL PO SCH ×3 (09:01→18:08)
--- NOTE | 2018-07-21 09:10 | PROGRESS NOTE ---
DATE: 07/21/2018 SUBJECTIVE: Mr. Masters is doing better. He is sitting up, about to eat the breakfast. He is alert and oriented x3. We discussed plan for alcohol cessation. He has been to rehab, I think [facility], before. He has gone to before. OBJECTIVE: Vital Signs: Temperature 99.1 degrees, pulse 76, respirations 30, blood pressure 112/76. Urine output is a 1000 mL. HEENT: Pupils are equal and round. Lungs: Clear in all lung bui. Cardiovascular: Regular rhythm and rate without murmur or S3. Abdomen: Soft. Skin: Warm and dry. DIAGNOSTIC STUDIES: On chest x-ray from this morning, he has some bibasilar atelectasis and some infiltrates bibasilar. ASSESSMENT AND PLAN: 1. He has had no further hematemesis, so we advanced his diet. 2. Attempted esophagogastroduodenoscopy to further evaluate hematemesis. Unfortunately, unable to intubate the trachea in order to get airway protection, so recommended additional time before we undergo outpatient esophagogastroduodenoscopy if necessary. 3. Alcohol cessation. I would like him to consider where he is going to go from here, at least go to outpatient [facility], but consider maybe rehab placement as well. Will continue the Trental 400 mg t.i.d. for 30 days and continue to treat his aspiration pneumonia. He is doing better, eating better. Would like to see radiographically his chest improved as well. LABORATORY DATA: Reviewing his lab from this morning, white count is 6290, hematocrit is 34, platelet count 122,000. Sodium 137, potassium 2.6 chloride 97, BUN 7, creatinine 0.6. Phosphorus was 2.2. I am going to give him some K-Phos today. I think he can probably move to the regular floor. He is in [facility] at the present time. cc: Balwinder Walsh MD
[2018-07-21] MEDS ORDERED: LASIX IV ONE (17:31)
[2018-07-21] MEDS ORDERED: SALINE LOCK IV FLUID XX ONE (18:57)
[2018-07-22] MEDS: ZOSYN 3.375 GM in NS 50 ML IV SCH ×2 (03:45→09:53)
[2018-07-22] MEDS: PROTONIX IV SCH (03:45)
--- NOTE | 2018-07-22 04:58 | PULMONOLOGY PROGRESS NOTE ---
DATE: 07/21/2018 SUBJECTIVE: The patient reports he feels better. He is taking p.o. intake. He denies hemoptysis, hematemesis, or melena. OBJECTIVE: Vital Signs: The patient has been afebrile for the last 24 hours. Blood pressure 120/79, heart rate 92, respiratory rate 21, oxygen saturation 93 percent on room air. HEENT: Pupils were equal and reactive. Oropharynx was clear. Neck: Supple Chest: Reveals occasional rhonchi, without wheezing or rales or tactile fremitus. Cardiac: S1-S2. Abdomen: Soft, with mild increased tympany. Extremities: Trace edema. LABORATORY STUDIES: White blood count 6.29, hemoglobin 10.9, platelet count 122,000 and rising. Chemistry: Sodium 137, potassium 3.6, chloride 97, bicarbonate 30, BUN 7, creatinine 0.6. Chest x-ray reveals small basilar effusions, with bibasilar infiltrates. IMPRESSION: A 43-year-old with alcohol abuse, cirrhosis with portal hypertension, aspiration pneumonia, gastrointestinal bleed, alcohol hepatitis, thrombocytopenia, and protein calorie malnutrition. The patient is tolerating p.o. intake. His hemoglobin is fluctuating between 11 and 12. He has had no evidence of active bleeding. He has some residual changes on his chest x- ray. RECOMMENDATIONS: 1. Hep-Lock IV fluids. 2. Continue diet as tolerated. 3. Continue antibiotics. 4. Continue physical therapy. 5. Follow up chest x-ray tomorrow. cc: Oleg Solano MD
[2018-07-22] MEDS ORDERED: XYLOCAINE-MPF 2% ONE (07:01)
[2018-07-22] MEDS ORDERED: DIPRIVAN 1% ONE ×2 (07:01→08:51)
[2018-07-22 07:12] LABS: HEMATOCRIT 32.9 % (42.0-52.0); HEMOGLOBIN 10.8 g/dL (14.0-18.0); MCH 32.8 PG (27-31); MCHC 32.8 g/dL (33-37); RBC 3.29 XMIL (4.7-6.1); RDW 16.8 % (11.5-14.5); WBC 7.36 X1000 (4.8-10.8)
[2018-07-22 07:49] LABS: AGAP 13; ALKALINE PHOSPHATASE 194 U/L (32-122); BUN 7 mg/dL (8-22); CALCIUM 7.7 mg/dL (8.8-10.2); CHLORIDE 96 mmol/L (98-107); COSMO 275; CREATININE 0.6 mg/dL (0.7-1.2); ESTIMATED GFR > 60; GLUCOSE 92 mg/dL (70-104); GOT 137 U/L (10-34); GPT 67 U/L (10-44); MAGNESIUM 1.5 mg/dL (1.5-2.7); POTASSIUM 2.7 mmol/L (3.5-5.1); SODIUM 139 mmol/L (136-145); TCO2 30 mmol/L (25-35); TOTAL BILIRUBIN 2.92 mg/dL (0.20-1.00); TOTAL PROTEIN 5.9 g/dL (6.3-8.3)
[2018-07-22] MEDS ORDERED: FENTANYL ONE (08:43)
[2018-07-22] MEDS ORDERED: CORGARD PO ONE (09:42)
--- NOTE | 2018-07-22 09:52 | OPERATIVE NOTE ---
PROCEDURE DATE: 07/22/2018 REFERRING PROVIDER: Balwinder Walsh MD. INDICATION FOR PROCEDURE: 1. Hematemesis. 2. Anemia. PROCEDURE PERFORMED: Esophagogastroduodenoscopy. CONSENT: Informed consent was obtained from the patient prior to the procedure. The risks, benefits, and alternatives were discussed with the patient and his . MEDICATION: The patient received monitored anesthesia care. PERFORMING PHYSICIAN: Dorene Figueroa MD. ASSISTANTS: 1. ST. Kayla 2. Mercedes Kulkarni RN. 3. Angelica Mooney CRNA. 4. Fady Sinha MD (anesthesia). COMPLICATIONS: There were no complications. ESTIMATED BLOOD LOSS: None. SPECIMENS REMOVED: None. FINDINGS: After sedation was achieved, the upper endoscope was inserted to the second portion of the duodenum. The hypopharynx appeared endoscopically normal. Upon intubating the tubular esophagus, there were multiple columns of large esophageal varices, but no stigmata of bleeding. In the distal esophagus, there was grade B to C erosive esophagitis. The GE junction appeared irregular at 40 cm. Due to the esophagitis, no biopsies were taken. There was a hiatal hernia that spanned from 40 to 45 cm. The gastric mucosa in the hernia sac was inflamed with scattered erosions consistent with acute erosive gastritis. There were also columns of veins consistent with gastric varices. This was confirmed on retroflexed view, where gastric varices were again appreciated. There was mucosal changes consistent with portal gastropathy. The pylorus appeared endoscopically normal. In the duodenum, there was erosive duodenitis, but no active bleeding. After the exam was complete, the lumen was decompressed, and the scope was removed without incident. IMPRESSION: 1. Large esophageal varices. 2. Grade B to C erosive esophagitis. 3. Irregular gastroesophageal junction at 40 cm. 4. Hiatal hernia. 5. Acute erosive gastritis. 6. Portal gastropathy. 7. Gastric varices. 8. Duodenitis. RECOMMENDATION: 1. I will check stool studies for H pylori antigen. 2. Begin nadolol 20 mg daily x1, then 40 mg daily for treatment of the esophageal varices. 3. Continue Protonix 40 mg IV q.12 hours as an inpatient. He should transition to Prilosec 40 mg p.o. daily as an outpatient. 4. Begin Carafate 1 gram p.o. 4 times a day for 12 weeks. 5. We will schedule outpatient elective banding with Dr. Tramaine Corrigan in the next 4-6 weeks. 6. He should complete the 30 days of Trental for acute alcoholic hepatitis. 7. He should return to clinic after his EGD with banding. cc: MD Tramaine Nails MD Jeanette Keith, MD
[2018-07-22] MEDS: TRENTAL PO SCH ×2 (09:54→12:52)
[2018-07-22] MEDS ORDERED: CARAFATE PO SCH (11:00)
--- NOTE | 2018-07-22 12:31 | Diag Imaging Result Doc PS360 ---
EXAM: CHEST-2 VIEWS HISTORY: abnormal exam TECHNIQUE: Chest two views 07/21/2018 COMPARISON: None. FINDINGS: The lungs are well expanded. The heart is not enlarged. The vessels are not distended. There are fewer left basilar infiltrates on the current exam. Tiny pleural effusions remain. IMPRESSION: Interval improvement. Electronically signed by Braden Smith 07/22/2018 12:29 PM
--- NOTE | 2018-07-22 13:52 | DISCHARGE SUMMARY ---
ADMISSION DATE: 07/14/2018 DISCHARGE DATE: 07/22/2018 ADDENDUM: Note chest x-rays improved. Clinically, he is improved. Because he had aspiration pneumonia, I am going to put him on Augmentin 875 mg twice a day for another 7 days. I got his discharge medicines ready. cc: Balwinder Walsh MD
--- NOTE | 2018-07-22 13:56 | DISCHARGE SUMMARY ---
ADMISSION DATE: 07/14/2018 DISCHARGE DATE: SUMMARY: This is a 43-year-old patient of Dr. Bernard Devi with history of chronic alcoholism and anxiety who was brought into the emergency department after he was found on the floor confused, had defecated, and had bloody vomitus. In the emergency department, he was tremulous and confused and started desatting, hypoxemia. ACLS protocol was started. He was intubated and was admitted to ICU. Suspected alcohol withdrawals. He had abnormal liver function tests. History of chronic alcoholism and obvious hematemesis. It is suspected he was in delirium tremens and some thrombocytopenia, hypokalemia. Electrolytes were adjusted. He was extubated fairly quickly. Abdominal ultrasound showed cirrhosis and splenomegaly. Dr. Solano was following and felt it was consistent with alcohol abuse, gastrointestinal bleeding, hemoptysis, melena, aspiration pneumonia, alcoholic hepatitis, and acute hypoxemic respiratory failure with aspiration pneumonia. He had some protein calorie malnutrition. Hypomagnesemia and hypophosphatemia and then severe thrombocytopenia. His liver enzymes seemed to come down nicely. Pneumonia was treated. Platelet count 128,[address] Figueroa for GI was consulted. He was treated with Zosyn 3.375 g IV q.6 hours. He is put on Corgard 40 mg a day and Trental which is Pentoxifylline 400 mg 3 times a day, and we gave him some phenobarbital as needed. In the ER, he was oriented and cooperative, eating well. No sign of further bleeding. Hematocrit and hemoglobin stable. Hematocrit 32, hemoglobin 10. It was felt he could be discharged. We talked about the importance of alcohol cessation. He has been to rehab before. He is going to go with [facility]. Discharged home. I will give him the Trental 400 mg t.i.d.; Protonix 40 mg I will give to him twice a day for a month and go down to once a day. Carafate 1 g before meals and at bedtime. I will let him go back on his Lexapro. I think we will hold off on blood pressure medicines. He was taking blood pressure medicine of losartan but I do not think he needs it at this time. He is to follow up with his primary care. I would like him to follow up with the machine cleaner as well. cc: Balwinder Walsh MD
[2018-07-22 14:52] VITALS: BP 149/58
[2018-07-23] MEDS ORDERED: CORGARD PO SCH (09:00)
== END 2018-07-22 16:16 | disposition home or self-care (01) | DRG 208 ==
LOC: ED 18:18 → SUATTDRO 22:42 → ICU 22:42 → 3S 07-20 19:19 → 3N 07-21 11:39
PROVIDERS: ATTEND Emergency Medicine
CPT/HCPCS: 31500; 36430; 51702; 71010; 71020; 71045; 71046; 74000; 74018; 76700; 80048; 80053; 80074; 80202; 80307; 80320; 80324; 80329; 81001; 82003; 82009; 82040; 82055; 82140; 82150; 82550; 82553; 82607; 82728; 82746; 82805; 82948; 83540; 83550; 83605; 83690; 83735; 84100; 84439; 84443; 85014; 85018; 85025; 85027; 85610; 85730; 86850; 86900; 86901; 86920; 87040; 87070; 87088; 87205; 87338; 93005; 94002; 94003; 94150; 94640; 96365; 96368; 96375; 97116; 97161; 97530; 99285; A9270; C9113; G0480; G6039; G6040; J0171; J0330; J0610; J1100; J1940; J2060; J2250; J2354; J2405; J2543; J2560; J3010; J3370; J3411; J3475; J3480; J7030; J7040; J7050; J7060; P9016; P9017; P9035; S0164; XXXXX